=== PATIENT | male | born 1945 | race Caucasian/White ===

== ENCOUNTER → 2019-04-02 | Outpatient (CLI) | payer MEDICARE, OTHER ==
--- NOTE | 2019-04-02 14:03 | Diagnostic Imaging Report ---
INDICATION: Cough. TIME OF EXAM: 1:22 p.m. COMPARISON: No prior studies are available for comparison. FINDINGS: The heart is mildly enlarged. Lungs appear to be free of acute infiltrates. No effusion or pneumothorax is identified. IMPRESSION: No acute cardiopulmonary process is detected. Dictated by: Dictated on workstation # [id number]
== END ==
LOC: RAD FS 13:27
PROVIDERS: ATTEND Nurse Practitioner Family
DX: J40 Bronchitis, not specified as acute or chronic (principal)
CPT/HCPCS: 71046

== ENCOUNTER 2020-08-18 05:49 | Outpatient (RCR) | payer MEDICARE, OTHER ==
[~2020-08-18] VITALS: Ht 165.1 cm; Wt 104.5 kg
[2020-08-18] MEDS ORDERED: EMPA10TA PO (12:37)
[2020-08-18] MEDS ORDERED: ZOLP5TAB7 PO (12:37)
[2020-08-18] MEDS ORDERED: CHOL400T PO (12:37)
[2020-08-18] MEDS ORDERED: FL025NA25 NS (12:37)
[2020-08-18] MEDS ORDERED: FAMO20TA3 PO (12:37)
[2020-08-18] MEDS ORDERED: CHLO4TAB36 PO (12:37)
[2020-08-18] MEDS ORDERED: FEXO-46 PO (12:37)
[2020-08-18] MEDS ORDERED: CETI10TA17 PO (12:37)
[2020-08-18] MEDS ORDERED: TIOT4MIS2 IH (12:37)
[2020-08-18] MEDS ORDERED: IRBE300T17 PO (12:37)
[2020-08-18] MEDS ORDERED: TERA5CAP3 PO (12:37)
[2020-08-18] MEDS ORDERED: LEVO75CA5 PO (12:37)
[2020-08-18] MEDS ORDERED: PRAV80TA2 PO (12:37)
[2020-08-18] MEDS ORDERED: ASPI-999 PO (12:57)
[2020-08-18] MEDS ORDERED: METO50TA15 PO (12:57)
[2020-08-18] MEDS ORDERED: CLOP75TA28 PO (12:57)
[2020-08-18] MEDS ORDERED: METF-399 PO (12:57)
[2020-08-18] MEDS ORDERED: CALC500T64 PO (12:57)
== END 2020-08-18 13:02 | disposition home or self-care (01) ==
LOC: PREOP 05:49
PROVIDERS: ATTEND Urology
DX: Z01.818 Encounter for other preprocedural examination (principal); N47.1 Phimosis; N48.0 Leukoplakia of penis

== ENCOUNTER → 2020-08-21 | Outpatient (CLI) | payer MEDICARE, OTHER ==
[~2020-08-21] MED LIST: ASPI-999 PO; CALC500T64 PO; CETI10TA17 PO; CHLO4TAB36 PO; CHOL400T PO; CLOP75TA28 PO; EMPA10TA PO; FAMO20TA3 PO; FEXO-46 PO; FL025NA25 NS; IRBE300T17 PO; LEVO75CA5 PO; METF-399 PO; METO50TA15 PO; PRAV80TA2 PO; TERA5CAP3 PO; TIOT4MIS2 IH; TRM50T PO; ZOLP5TAB7 PO
== END ==
LOC: LAB FS 10:50
PROVIDERS: ATTEND Urology
DX: Z01.812 Encounter for preprocedural laboratory examination (principal); N47.1 Phimosis; Z20.822 Contact with and (suspected) exposure to COVID-19
CPT/HCPCS: 87635

== ENCOUNTER 2020-08-25 06:32 | Day surgery (SDC) | payer MEDICARE, OTHER ==
[2020-08-25] VITALS (10 sets, daily range): BP systolic 100–140; BP diastolic 65–87
[~2020-08-25] VITALS: Ht 165.1 cm; Wt 104.5 kg
[~2020-08-25 06:32] MED LIST changes: -TRM50T PO
[2020-08-25] MEDS ORDERED: ceFAZolin INJECTION 1,000 MG in WATER (STERILE) FOR INJECTION 10 ML IV ONE (06:45)
[2020-08-25] MEDS ORDERED: LACTATED RINGERS 1,000 ML IV PRN (06:45)
[2020-08-25] MEDS ORDERED: NEOSPORIN + PAIN RELIEF CREAM 15 GM ONE (06:50)
[2020-08-25] MEDS ORDERED: proPOfol 200 MG/20 ML (DIPRIVAN) VIAL IV ONE ×2 (07:05→08:01)
[2020-08-25] MEDS ORDERED: fentaNYL INJECTION 100 MCG/2 ML AMP ONE (07:05)
[2020-08-25] MEDS ORDERED: LIDOCAINE PF 2% 5 ML (XYLOCAINE) VIAL ONE (07:05)
[2020-08-25] MEDS ORDERED: ONDANSETRON 4 MG/2 ML (SDV) Z0FRAN ONE ×2 (07:05→07:54)
[2020-08-25] MEDS ORDERED: MIDAZOLAM 2 MG/2 ML (VERSED) VIAL ONE (07:06)
[2020-08-25] MEDS ORDERED: SEVOFLURANE (ULTANE) 15 ML INHAL SOLN ONE (07:10)
--- NOTE | 2020-08-25 07:14 | Progress Note-Pre Operative ---
Pre-Operative Progress Note H&P Reviewed The H&P was reviewed, patient examined and no changes noted. Date Seen by Provider: Aug 25, 2020 Time Seen by Provider: 07:14 Date H&P Reviewed: Aug 25, 2020 Time H&P Reviewed: 07:14 Pre-Operative Diagnosis: SEVERE PHIMOSIS PRISCILLA LUCAS MD Aug 25, 2020 07:14
--- NOTE | 2020-08-25 07:16 | Progress Note-Post Operative ---
Post-Operative Progess Note Surgeon (s)/Application Programmer Analyst (s) Surgeon PRISCILLA LUCAS MD Application Programmer Analyst: NONE Pre-Operative Diagnosis SEVERE PHIMOSIS Post-Operative Diagnosis SAME Procedure & Operative Findings Date of Procedure 08/25/20 Procedure Performed/Findings CIRCUMCISION Anesthesia Type GENERAL Estimated Blood Loss Estimated blood loss (mL): LESS THAN 50cc Specimens/Packing Specimens Removed NONE TO PATH Packing: NONE PRISCILLA LUCAS MD Aug 25, 2020 07:16
--- NOTE | 2020-08-25 07:19 | Discharge Inst-Urology ---
Discharge Inst-Urology Reconcile Patient Problems Problems Reviewed?: Yes Final Diagnosis SEVERE PHIMOSIS Patient Instructions/Follow Up Plan/Assessment/Instructions Please make appointment to been seen in office in 2 weeks. Hold ASA and Plavix till then. Rest till then Ice to penis in RR and at home for 6 hours and then PRN Showers, no bath Keep bowels soft and moving Wear light pants Neosporin + pain ointment to circ area bid for 5-7 days Increase oral fluids for 48 hours and then as needed. Diet as tolerated. If questions or concerns contact your physician Or seek help at emergency department. PRISCILLA LUCAS MD Aug 25, 2020 07:19
[2020-08-25] MEDS ORDERED: TRM50T PO (07:52)
[2020-08-25] MEDS ORDERED: PHENYLEPHRINE INJ 10 MG/ML (FOR DRIP KITS ONLY) ONE (07:55)
[2020-08-25] MEDS ORDERED: BUPIVACAINE 0.25% 30 ML (SENSORCAINE) VIAL ONE (08:13)
[2020-08-25] MEDS ORDERED: PHENYLEPHRINE 100 MCG/ML 10 ML (ANESTHESIA) SYR ONE (08:13)
[2020-08-25] MEDS ORDERED: MEPERIDINE (DEMEROL) INJ 50 MG/ML IVP ONE (08:30)
[2020-08-25] MEDS ORDERED: ONDANSETRON 4 MG/2 ML (SDV) Z0FRAN IVP PRN (08:30)
[2020-08-25] MEDS ORDERED: morphine INJ 10 MG/ML 1ML (SYR OR VIAL) IVP ONE (08:30)
--- NOTE | 2020-08-25 09:26 | Anesthesia-General Post-Op ---
General Patient Condition Mental Status/LOC: Same as Preop Cardiovascular: Satisfactory Nausea/Vomiting: Absent Respiratory: Satisfactory Pain: Controlled Complications: Absent Post Op Complications Complications None Follow Up Care/Instructions Patient Instructions None needed. Anesthesia/Patient Condition Patient Condition Patient is doing well, no complaints, stable vital signs, no apparent adverse anesthesia problems. No complications reported per nursing. LUIS ENRIQUE WITT CRNA Aug 25, 2020 09:26
--- NOTE | 2020-08-25 10:56 | OPERATIVE REPORT ---
DATE OF SERVICE: 08/25/2020 PREOPERATIVE DIAGNOSIS: Severe phimosis. POSTOPERATIVE DIAGNOSIS: Severe phimosis. OPERATION PERFORMED: Circumcision. SURGEON: Cal Lucas MD. ANESTHESIA: General. COMPLICATIONS: None. DESCRIPTION OF PROCEDURE: Under satisfactory general anesthesia, the patient in supine position, the genitalia were prepped and draped in the usual sterile fashion. Unable to retract the foreskin, I went ahead and performed a dorsal slit. Then, a circular incision in the skin at the level of the cho glandis then into the mucosa just proximal to the cho glandis. The excess foreskin was sharply excised. Bleeders were cauterized or ligated with 3-0 chromic catgut suture. Hemostasis was complete. The skin and the mucosa were approximated with running 4-0 chromic catgut interrupted in four quadrants. Neosporin plus pain ointment was applied as well as a light dressing. The patient tolerated the procedure and anesthesia well and was sent to recovery room in stable condition. ESTIMATED BLOOD LOSS: Less than 50 mL. Job ID: [id number] DocumentID: [id number] Dictated Date: 08/25/2020 08:20:04 Forge Tender Date: 08/25/2020 10:55:32 Dictated By: CAL LUCAS MD
== END 2020-08-25 10:45 | disposition home or self-care (01) ==
LOC: SDC 06:32
PROVIDERS: ATTEND Urology
DX: N47.1 Phimosis (principal); N48.0 Leukoplakia of penis; I25.10 Atherosclerotic heart disease of native coronary artery without angina pectoris; I10 Essential (primary) hypertension; E11.9 Type 2 diabetes mellitus without complications; K21.9 Gastro-esophageal reflux disease without esophagitis; N40.0 Benign prostatic hyperplasia without lower urinary tract symptoms; E66.9 Obesity, unspecified; Z68.38 Body mass index [BMI] 38.0-38.9, adult; Z79.82 Long term (current) use of aspirin; Z79.899 Other long term (current) drug therapy; Z90.89 Acquired absence of other organs; Z95.5 Presence of coronary angioplasty implant and graft; Z98.890 Other specified postprocedural states; Z79.84 Long term (current) use of oral hypoglycemic drugs; Z87.891 Personal history of nicotine dependence
CPT/HCPCS: 82962; 87081

== ENCOUNTER 2021-08-30 08:02 | Outpatient (CLI) | payer MEDICARE, OTHER ==
[~2021-08-30] VITALS: Ht 165.1 cm; Wt 102.1 kg
[~2021-08-30 08:02] MED LIST changes: +TERA5CAP10 PO; -TERA5CAP3 PO; +TRM50T PO
== END 2021-08-30 13:29 ==
LOC: PREOP 08:02
PROVIDERS: ATTEND Surgery
DX: Z01.818 Encounter for other preprocedural examination (principal)

== ENCOUNTER → 2021-09-03 | Outpatient (CLI) | payer MEDICARE, OTHER | LOC: LAB FS 10:17 | PROVIDERS: ATTEND Surgery | DX: Z01.812 Encounter for preprocedural laboratory examination (principal); K21.9 Gastro-esophageal reflux disease without esophagitis; R19.4 Change in bowel habit; Z86.010 Personal history of colon polyps; Z20.822 Contact with and (suspected) exposure to COVID-19 | CPT/HCPCS: 87635 ==

== ENCOUNTER 2021-09-06 07:21 | Day surgery (SDC) | payer MEDICARE, OTHER ==
[~2021-09-06] VITALS: Ht 165 cm; Wt 102.0 kg
[2021-09-06] MEDS ORDERED: LACTATED RINGERS 1,000 ML IV STA (07:41)
[2021-09-06 07:50] VITALS: BP 137/68
[2021-09-06] MEDS ORDERED: LACTATED RINGERS 1,000 ML IV ONE (07:51)
--- NOTE | 2021-09-06 08:31 | Progress Note-Pre Operative ---
Pre-Operative Progress Note H&P Reviewed The H&P was reviewed, patient examined and no changes noted. Time Seen by Provider: 08:26 Date H&P Reviewed: Sep 06, 2021 Time H&P Reviewed: 08: Pre-Operative Diagnosis: Reflux, Hx of polyps, bowel changes PATITO NEELY DO Sep 06, 2021 08:31
[2021-09-06] MEDS ORDERED: PROPOFOL INJECTION 50 ML IV ONE (10:44)
[2021-09-06] MEDS ORDERED: KETAMINE 50 MG/5 ML SYRINGE ONE (10:47)
[2021-09-06 11:30] VITALS: BP 127/59
--- NOTE | 2021-09-06 11:32 | Progress Note-Post Operative ---
Post-Operative Progess Note Surgeon (s)/In Home Nanny (s) Surgeon PATITO NEELY DO In Home Nanny: none Pre-Operative Diagnosis Reflux, Hx of polyps, bowel changes Post-Operative Diagnosis Gastritis Hiatal hernia polyp diverticula int hemorrhoids Procedure & Operative Findings Date of Procedure 09/06/21 Procedure Performed/Findings EGD with biopsy Colon with hot biopsy PROCEDURE NOTE: After informed consent was obtained, the patient was brought to the endoscopy suite, placed in bed in left lateral decubitus position. He was administered IV sedation by the SANFORIZING MACHINE OPERATOR who then monitored vitals the entire time, heart rate, blood pressure and pulse ox and the scope was inserted down the mouth through the esophagus into the stomach. Pushed into the stomach and past the antrum into the duodenum; duodenum looked good. Pulled back and did a biopsy of the antrum, then retroflexed the scope, saw a 1cm hiatal hernia, took a picture of this and then pulled the scope into the GE junction, took another picture of the hiatal hernia and then did a biopsy of the GE junction. Pushed the scope back into the stomach, suctioned all the air out of the stomach. At this point pulled the scope up the esophagus and out the mouth. Switched camera, switched gloves and went down below to start the colonoscopy. Pushed all the way into about 150 cm to get all the way to cecum, took a picture of the appendiceal orifice and noted the ileocecal valve and then slowly withdrew the scope. Insufflating to look circumferentially at the azevedo starting in the cecum, up the ascending colon. Saw a small polyp in the ascending colon and elected to remove it with hot biopsy. To the hepatic flexure, then down the transverse colon to the splenic flexure and into the descending colon. Had seen some large diverticula through here and took a picture of the diverticula. Down into the sigmoid and finally into the rectum, retroflexed in the rectal vault, saw some minimal internal hemorrhoids and took a picture of this. The patient tolerated the procedure and he recovered in the endoscopy suite. Anesthesia Type IV sedation by SANFORIZING MACHINE OPERATOR Estimated Blood Loss Estimated blood loss (mL): scant Specimens/Packing Specimens Removed antral bx GE jxn bx Asc colon polyp PATITO NEELY DO Sep 06, 2021 11:32
[2021-09-06 11:34] VITALS: BP 127/59
--- NOTE | 2021-09-06 11:34 | Endoscopy Discharge Instruct ---
Endo Procedure/Findings Findings 1.: Gastritis 2.: Hiatal Hernia 3.: Polyp 4.: Diverticulosis, Internal Hemorrhoids Discharge Instructions - Activity: You might feel a little sleepy until tomorrow. This is due to the medicine you received to relax you. Until tomorrow, you should: NOT drive a car, operate machinery or power tools. NOT drink any alcoholic beverages. NOT make any important decisions or sign importortant papers. Do not return to work until tomorrow, unless otherwise instructed. Resume previous activities tomorrow. Diet: Start by taking liquids. If you tolerate liquids, advance to solid food. 1.: EGD in 3 years 2.: Colonscopy in 5 years Notify Physician - If you experience excessive bleeding, unusual abdominal pain, fever, or chest pain, contact your doctor immediately. PATITO NEELY DO Sep 06, 2021 11:34
--- NOTE | 2021-09-06 11:41 | Anesthesia-General Post-Op ---
MAC Patient Condition Mental Status/LOC: Same as Preop Cardiovascular: Satisfactory Nausea/Vomiting: Absent Respiratory: Satisfactory Pain: Controlled Complications: Absent Post Op Complications Complications None Follow Up Care/Instructions Patient Instructions None needed. Anesthesiology Discharge Order Discharge Order Patient is doing well, no complaints, stable vital signs, no apparent adverse anesthesia problems. No complications reported per nursing. LUIS ENRIQUE WITT CRNA Sep 06, 2021 11:41
[2021-09-06 11:55] VITALS: BP 124/68
== END 2021-09-06 12:12 | disposition home or self-care (01) ==
LOC: ENDO 07:21
PROVIDERS: ATTEND Surgery
DX: K63.5 Polyp of colon (principal); K29.70 Gastritis, unspecified, without bleeding; K22.9 Disease of esophagus, unspecified; K44.9 Diaphragmatic hernia without obstruction or gangrene; K57.30 Diverticulosis of large intestine without perforation or abscess without bleeding; K64.8 Other hemorrhoids; R19.4 Change in bowel habit; E66.9 Obesity, unspecified; R19.7 Diarrhea, unspecified; K21.00 Gastro-esophageal reflux disease with esophagitis, without bleeding; Z68.37 Body mass index [BMI] 37.0-37.9, adult; Z79.2 Long term (current) use of antibiotics; Z79.82 Long term (current) use of aspirin; Z79.899 Other long term (current) drug therapy; Z87.891 Personal history of nicotine dependence

== ENCOUNTER 2022-06-21 01:24 | Inpatient (IN) | payer MEDICARE, OTHER ==
[~2022-06-21] VITALS: Ht 165.1 cm; Wt 98.3 kg
[~2022-06-21 01:24] MED LIST changes: -FEXO-46 PO; +NF-ALLE180 PO
[2022-06-21] MEDS ORDERED: HEParin 1000 UNIT/ML (10ML VIAL) FOR BOLUS ONE (01:49)
[2022-06-21] MEDS ORDERED: MIDAZOLAM 5 MG/5 ML (VERSED) VIAL ONE (01:49)
[2022-06-21] MEDS ORDERED: LIDOCAINE 1% INJ 30 ML (XYLOCAINE) VIAL ONE (01:49)
[2022-06-21] MEDS ORDERED: VERAPAMIL 5 MG/2 ML (CALAN) VIAL IV ONE (01:49)
[2022-06-21] MEDS ORDERED: fentaNYL INJ 100 MCG/2 ML AMP ONE (01:49)
[2022-06-21] MEDS ORDERED: NITRO DRIP 25000 MCG/D5W 250 ML IV ONE (01:50)
[2022-06-21] MEDS ORDERED: NS IV 1000 ML 0 ML ONE (01:50)
[2022-06-21] MEDS ORDERED: HEParin (CATH LAB) 2,000 ML IV ONE (01:50)
--- NOTE | 2022-06-21 01:52 | ED Chest Pain ---
General Stated Complaint: STEMI Source: patient, old records History of Present Illness Date Seen by Provider: Jun 21, 2022 Time Seen by Provider: 01:34 Initial Comments PT ARRIVES VIA [facility] FROM HOME IN [facility] C/O CHEST PAIN SINCE 2299 TONIGHT PAIN IS IN CENTER OF CHEST, RADIATES TO BACK AND DOWN LEFT ARM + SHORTNESS OF BREATH + DIAPHORESIS + LEG SWELLING + NAUSEA RATES PAIN 10/10 PT HAS HISTORY OF CAD WITH STENTS X 5--COST CONTROL ANALYST IS DR. WINTER WITH [facility] PT ALSO HAS HISTORY OF HTN, DIABETES AND COPD EMS GAVE: -324 MG ASPIRIN -ZOFRAN 4 MG -FENTANYL 100 MCG NO NITROGLYCERINE BY EMS. EKG WAS SENT VIA TEXT TO BI REPORT DEVELOPER'S PHONE, AND SHOWS STEMI--INFERIOR LEADS AND ANTERIOR/LATERALLY 0125--DR. PUENTES, COST CONTROL ANALYST DRUG ROOM CLERK, CONTACTED. HE ADVISES TO CALL IN CARDIOPULMONARY TECHNICIAN. BI REPORT DEVELOPER NOTIFIED AND IS CALL IN CARDIOPULMONARY TECHNICIAN TEAM 0135--DR. PUENTES HERE ON PT'S ARRIVAL, AND ASSUMED CARE OF PT PCP: [facility]. HIGH [employer]CHOOL COMPUTER SCIENCE TEACHER DONALD COST CONTROL ANALYST: DR. WINTER, [facility] Allergies and Home Medications Allergies Coded Allergies: fosinopril (Unverified Allergy, Unknown, 08/30/21) lisinopril (Unverified Allergy, Unknown, 08/30/21) Patient Home Medication List Home Medication List Reviewed: Yes Calcium Carbonate (Calcium Carbonate) 500 Mg Tablet, 500 MG PO DAILY, (Reported) Entered as Reported by: HEBERT QUACH on 08/18/20 1257 Last Action: Reviewed Cetirizine HCl (Cetirizine HCl) 10 Mg Tablet, 10 MG PO BID, (Reported) Entered as Reported by: HEBERT QUACH on 08/18/20 1237 Last Action: Reviewed Chlorpheniramine Maleate (Chlorpheniramine Maleate) 4 Mg Tablet, 4 MG PO DAILY, (Reported) Entered as Reported by: HEBERT QUACH on 08/18/20 1237 Cholecalciferol (Vitamin D3) (Vitamin D3) 10 Mcg Tablet, 10 MCG PO DAILY, (Reported) Entered as Reported by: HEBERT QUACH on 08/18/20 1237 Empagliflozin (Jardiance) 10 Mg Tablet, 10 MG PO DAILY, (Reported) Entered as Reported by: HEBERT QUACH on 08/18/201236 Last Action: Reviewed Famotidine (Acid Cell Cleaner (FAMOTIDINE)) 20 Mg Tablet, 20 MG PO BID, (Reported) Entered as Reported by: HEBERT QUACH on 08/18/201236 Last Action: Reviewed Fexofenadine HCl (Fexofenadine HCl) 180 Mg Tablet, 180 MG PO DAILY, (Reported) Entered as Reported by: HEBERT QUACH on 08/18/201236 Last Action: Reviewed Flunisolide (Flunisolide) 25 Ml Inha, 1 PUFF NS DAILY, (Reported) Entered as Reported by: HEBERT QUACH on 08/18/201236 Irbesartan (Irbesartan) 300 Mg Tablet, 300 MG PO DAILY, (Reported) Entered as Reported by: HEBERT QUACH on 08/18/201236 Last Action: Reviewed Levothyroxine Sodium (Levothyroxine) 75 Mcg Capsule, 75 MCG PO DAILY, (Reported) Entered as Reported by: HEBERT QUACH on 08/18/201236 Last Action: Reviewed Metformin HCl (Metformin HCl) 1,000 Mg Tablet, 1,000 MG PO BID, (Reported) Entered as Reported by: HEBERT QUACH on 08/18/20 1257 Last Action: Reviewed Metoprolol Tartrate (Metoprolol Tartrate) 50 Mg Tablet, 50 MG PO BID, (Reported) Entered as Reported by: HEBERT QUACH on 08/18/20 1257 Last Action: Reviewed Pravastatin Sodium (Pravastatin Sodium) 80 Mg Tablet, 80 MG PO HS, (Reported) Entered as Reported by: HEBERT QUACH on 08/18/201236 Last Action: Reviewed Terazosin HCl (Terazosin HCl) 5 Mg Capsule, 5 MG PO DAILY, (Reported) Entered as Reported by: HEBERT QUACH on 08/18/201236 Last Action: Reviewed Tiotropium [place] (Spiriva Respimat 2.5MCG/ACTUATION) 4 Gm Mist.inhal, 2 PUFF IH DAILY, (Reported) Entered as Reported by: HEBERT QUACH on 2/9/21 1237 Last Action: Reviewed Tramadol HCl (Tramadol HCl) 50 Mg Tablet, 1-2 TAB PO Q4H PRN for PAIN-MODERATE (5-7) Prescribed by: ANGELITA CONTI on 08/25/20 2499 Last Action: Reviewed Zolpidem Tartrate (Zolpidem Tartrate) 5 Mg Tablet, 5 MG PO HS, (Reported) Entered as Reported by: HEBERT QUACH on 08/18/20 1237 Last Action: Reviewed Review of Systems Review of Systems Constitutional: see HPI, diaphoresis EENTM: No Symptoms Reported Respiratory: See HPI, Shortness of Air Cardiovascular: See HPI, Chest Pain, Edema; Denies Lightheadedness, Denies Palpitations Gastrointestinal: See HPI; Denies Abdominal Pain; Nausea; Denies Vomiting Genitourinary: No Symptoms Reported Musculoskeletal: no symptoms reported Skin: no symptoms reported Psychiatric/Neurological: No Symptoms Reported Endocrine: No Symptoms Reported Hematologic/Lymphatic: No Symptoms Reported Past Mrgxayy-Clrbye-Mptlol Hx Patient Social History Tobacco Use?: Yes Tobacco type used: Cigarettes Smoking Status: Never a Smoker Substance use?: No Alcohol Use?: No Immunizations Up To Date PED Vaccines UTD: No First/Initial COVID19 Vaccinat: YES Second COVID19 Vaccination Jeffrey: YES Third COVID19 Vaccination Date: YES Seasonal Allergies Seasonal Allergies: Yes Past Medical History Surgeries: Yes (stents placed in 2004,2009, and 5 placed October 2019, lung sx 1960, ganglion) Adenoidectomy, Coronary Stent, Lobectomy, Orthopedic, Tonsillectomy Respiratory: Yes (hx of lung sx in 1960's"lung repair") COPD Currently Using CPAP: No Currently Using BIPAP: No Cardiac: Yes (CAD WITH STENTS X 5 OR MORE) Coronary Artery Disease, High Cholesterol, Hypertension Neurological: No Genitourinary: Yes ("WEAK BLADDER"; CIRCUMCISION 08/25/2020) Benign Prostatic Hyperpl, Prostate Problems Gastrointestinal: Yes (GASTRITIS) Gastroesophageal Reflux, Diverticulosis, Hemorrhoids, Polyps, Hiatal Hernia Musculoskeletal: Yes Arthritis Endocrine: Yes Hypothyroidsim, Diabetes, Non-Insulin dep HEENT: Yes (glasses) Cancer: No Psychosocial: No Integumentary: Yes Psoriasis Blood Disorders: No Family Medical History CIRCUMCISION 08/25/[address] LUCAS EGD + COLONOSCOPY 09/06/[address] NEELY Pre-Operative Diagnosis Reflux, Hx of polyps, bowel changes Post-Operative Diagnosis Gastritis Hiatal hernia polyp diverticula int hemorrhoids Physical Exam Vital Signs Capillary Refill : Height, Weight, BMI Height: '" Weight: lbs. oz. kg; 37.46 BMI Method: General Appearance: No Apparent Distress, WD/WN, Obese Neck: Normal Inspection Respiratory: Chest Non Tender, Normal Breath Sounds, No Accessory Muscle Use, No Respiratory Distress Cardiovascular: Regular Rate, Rhythm, No Murmur Gastrointestinal: Non Tender, Soft Extremity: Normal Capillary Refill, No Calf Tenderness, Pedal Edema (TRACE BILATERALLY) Neurologic/Psychiatric: Alert, Oriented x3, No Motor/Sensory Deficits, Normal Mood/Affect, licensed physical therapist II-XII Norm as Tested Skin: Normal Color, Warm/Dry Progress/Results/Core Measures Results/Orders Lab Results Laboratory Tests Test 06/21/22 01:45 Range/Units White Blood Count 10.6 4.3-11.0 10^3/uL Red Blood Count 4.84 4.30-5.52 10^6/uL Hemoglobin 13.1 L 13.3-17.7 g/dL Hematocrit 42 40-54 % Mean Corpuscular Volume 87 80-99 fL Mean Corpuscular Hemoglobin 27 25-34 pg Mean Corpuscular Hemoglobin Concent 31 L 32-36 g/dL Red Cell Distribution Width 17.0 H 10.0-14.5 % Platelet Count 304 130-400 10^3/uL Mean Platelet Volume 9.5 9.0-12.2 fL Immature Granulocyte % (Auto) 0 % Neutrophils (%) (Auto) 72 42-75 % Lymphocytes (%) (Auto) 18 12-44 % Monocytes (%) (Auto) 8 0-12 % Eosinophils (%) (Auto) 2 0-10 % Basophils (%) (Auto) 0 0-10 % Neutrophils # (Auto) 7.6 1.8-7.8 10^3/uL Lymphocytes # (Auto) 1.9 1.0-4.0 10^3/uL Monocytes # (Auto) 0.8 0.0-1.0 10^3/uL Eosinophils # (Auto) 0.2 0.0-0.3 10^3/uL Basophils # (Auto) 0.0 0.0-0.1 10^3/uL Immature Granulocyte # (Auto) 0.0 0.0-0.1 10^3/uL Prothrombin Time 13.2 12.2-14.7 SEC INR Comment 1.0 0.8-1.4 Activated Partial Thromboplast Time 25 24-35 SEC D-Dimer 0.48 0.00-0.49 UG/ML Sodium Level 141 135-145 MMOL/L Potassium Level 3.5 L 3.6-5.0 MMOL/L Chloride Level 103 98-107 MMOL/L Carbon Dioxide Level 21 21-32 MMOL/L Anion Gap 17 H 5-14 MMOL/L Blood Urea Nitrogen 23 H 7-18 MG/DL Creatinine 1.05 0.60-1.30 MG/DL Estimat Glomerular Filtration Rate 72 BUN/Creatinine Ratio 22 Glucose Level 214 H 70-105 MG/DL Calcium Level 8.7 8.5-10.1 MG/DL Corrected Calcium 8.7 8.5-10.1 MG/DL Magnesium Level 1.7 1.6-2.4 MG/DL Total Bilirubin 0.3 0.1-1.0 MG/DL Aspartate Amino Transf (AST/SGOT) 17 5-34 U/L Alanine Aminotransferase (ALT/SGPT) 29 0-55 U/L Alkaline Phosphatase 68 40-136 U/L Total Creatine Kinase 106 30-200 U/L Creatine Kinase MB 1.4 <6.6 NG/ML Myoglobin 64.3 10.0-92.0 NG/ML Troponin I < 0.028 <0.028 NG/ML B-Type Natriuretic Peptide 42.8 <100.0 PG/ML Total Protein 6.8 6.4-8.2 GM/DL Albumin 4.0 3.2-4.5 GM/DL Triglycerides Level 139 <150 MG/DL Cholesterol Level 130 < 200 MG/DL LDL Cholesterol Direct 77 1-129 MG/DL VLDL Cholesterol 28 5-40 MG/DL HDL Cholesterol 34 L 40-60 MG/DL Amylase Level 44 25-125 U/L Lipase 16 8-78 U/L My Orders Orders - TIANNA ZUÑIGA DO Ekg Tracing (06/21/22 01:35) Ed Iv/Invasive Line Start (06/21/22 01:37) O2 (06/21/22 01:37) Monitor-Rhythm Ecg Trace Only (06/21/22 01:37) Amylase (06/21/22 01:37) Lipase (06/21/22 01:37) Magnesium (06/21/22 01:37) Cbc With Automated Diff (06/21/22 01:37) Chest 1 View, Ap/Pa Only (06/21/22 01:37) Ekg Tracing (06/21/22 01:37) Comprehensive Metabolic Panel (06/21/22 01:37) Myoglobin Serum (06/21/22 01:37) Protime With Inr (06/21/22 01:37) Partial Thromboplastin Time (06/21/22 01:37) O2 (06/21/22 01:37) Ed Iv/Invasive Line Start (06/21/22 01:37) Creatine Kinase (06/21/22 01:37) Creatine Kinase Mb (06/21/22 01:37) Bnp Centre (06/21/22 01:37) Fibrin Degradation Products (06/21/22 01:37) Troponin I Agustín (06/21/22 01:37) Heparin (Bolus Per Protocol) (Heparin (B (06/21/22 02:00) Morphine Injection (Morphine Injection (06/21/22 02:00) Medications Given in ED Current Medications Medications Dose Ordered Sig/Suzette Route Start Time Stop Time Status Last Admin Dose Admin Heparin Sodium (Porcine) HEPARIN FULL PROTOC... ONCE ONCE IV 06/21/22 02:00 06/21/22 02:01 DC 06/21/22 01:47 5,000 UNIT Morphine Sulfate 4 mg ONCE ONCE IVP 06/21/22 02:00 06/21/22 02:01 DC 06/21/22 02:09 4 MG Progress Progress Note : Progress Note CARDIOPULMONARY TECHNICIAN AND DR. PUENTES WERE CONTACTED PRIOR TO PT'S ARRIVAL GIVEN IN ER: -MORPHINE FOR PAIN -HEPARIN BOLUS 0210--PT TO CARDIOPULMONARY TECHNICIAN PT HAS NOT HAD ANY ER OR INPATIENT VISITS HERE, HAS HAD OUTPATIENT PROCEDURES ONLY. THESE WERE REVIEWED, INCLUDING H&P'S, PROCEDURE NOTES AND DISCHARGE SUMMARIES/INSTRUCTIONS Initial ECG Impression Date: Jun 21, 2022 Initial ECG Impression Time: 01:41 Initial ECG Rate: 88 Initial ECG Rhythm: Normal Sinus (OCCASIONAL PAC'S) Initial ECG Impression: Acute OH (INFERIOR AND ANTERIOR/LATERAL STEMI. ) Initial ECG Comparisson: No Previous ECG Available Diagnostic Imaging Comments CXR--INCREASED PERIHILAR VASCULARITY/CHF, PENDING RADIOLOGIST REVIEW Reviewed: Reviewed by Me Departure Impression Primary Impression: STEMI (ST elevation myocardial infarction) Additional Impressions: HTN (hypertension) NIDDM HX OF CAD WITH STENTS Disposition: ADMITTED INPATIENT (TO CARDIOPULMONARY TECHNICIAN) Condition: Stable Admissions Decision to Admit Reason: Admit from ER (General) (TO CARDIOPULMONARY TECHNICIAN) Decision to Admit/Date: Jun 21, 2022 Time/Decision to Admit Time: 01:35 Departure-Patient Inst. Referrals: REMI BENNETT APRN (PCP) Primary Care Physician [facility] (Family) Primary Care Physician TIANNA ZUÑIGA DO Jun 21, 2022 01:52
[2022-06-21 01:55] LABS: BASOPHILS % (AUTO) 0 % (0-10); EOSINOPHILS # (AUTO) 0.2 10^3/uL (0.0-0.3); EOSINOPHILS % (AUTO) 2 % (0-10); HEMATOCRIT 42 % (40-54); HEMOGLOBIN 13.1 g/dL (13.3-17.7); LYMPHOCYTES # (AUTO) 1.9 10^3/uL (1.0-4.0); LYMPHOCYTES % (AUTO) 18 % (12-44); MEAN CORPUSCULAR HEMOGLOBIN 27 pg (25-34); MEAN CORPUSCULAR HGB CONC 31 g/dL (32-36); MEAN CORPUSCULAR VOLUME 87 fL (80-99); MEAN PLATELET VOLUME 9.5 fL (9.0-12.2); MONOCYTES # (AUTO) 0.8 10^3/uL (0.0-1.0); MONOCYTES % (AUTO) 8 % (0-12); NEUTROPHILS # (AUTO) 7.6 10^3/uL (1.8-7.8); NEUTROPHILS % (AUTO) 72 % (42-75); PLATELET COUNT 304 10^3/uL (130-400); WHITE BLOOD COUNT 10.6 10^3/uL (4.3-11.0)
[2022-06-21] MEDS ORDERED: morphine INJ 10 MG/ML 1ML (SYR OR VIAL) IVP ONE (02:00)
[2022-06-21] MEDS ORDERED: HEParin 1000 UNIT/ML (10ML VIAL) FOR BOLUS IV ONE (02:00)
--- NOTE | 2022-06-21 02:02 | Consultation-Cardiology ---
HPI-Cardiology Cardiology Consultation: Date of Consultation 06/21/22 Date of Admission 06/21/22 Attending Physician Lorie Olivarez Aprn Admitting Physician Admitting Physician: Attending Physician: Consulting Physician JUANITA PUENTES JR, MD HPI: Time Seen by a Provider: 01:56 Chief Complaint: THIS IS A HISTORY AND PHYSICAL FOR ADMISSION CHIEF COMPLAINT: Chest pain. I had the pleasure of seeing Parker in the ER at [facility] in [place], [place] this morning. He has a history of coronary artery disease with 5 previous coronary stents. He normally follows with a silk screen painter at [facility] in [place], [place]. He does not typically get angina. However, last evening at about 11:00 he developed substernal chest discomfort. He did not have any nitroglycerin at home. After the discomfort did not resolve, he eventu rochelley called 911. Upon arrival of EMS, an electrocardiogram was performed which reportedly showed an inferior STEMI. The patient was transported to our hospital for further treatment. In route, we were notified about the STEMI but they were not able to transmit the electrocardiogram until they were about 5 minutes out. When I saw him, he was still having significant substernal chest discomfort. He was diaphoretic. He also felt some shortness of breath. He denies paroxysmal nocturnal dyspnea, orthopnea, palpitations, lightheadedness, or syncope. From time to time he will get bilateral lower extremity edema. This usually happens by the end of the day and resolves by the following morning. He does not recall ever being told he has heart failure. Dry Review of Systems-Cardiology Review of Systems Other comments Review of 10 organ systems is as per the history of present illness, otherwise negative. AHV-Cjgyve-Equkys Hx Patient Social History Smoking Status: Former Smoker 2nd Hand Smoke Exposure: No Immunizations Up To Date Date of Influenza Vaccine: Apr 09, 2020 Past Medical History PMH As described under Assessment. Allergies and Home Medications Allergies Coded Allergies: fosinopril (Unverified Allergy, Unknown, 08/30/21) lisinopril (Unverified Allergy, Unknown, 08/30/21) Patient Home Medication List Home Medication List Reviewed: Yes Calcium Carbonate (Calcium Carbonate) 500 Mg Tablet, 500 MG PO DAILY, (Reported) Entered as Reported by: HEBERT QUACH on 08/18/20 1257 Cetirizine HCl (Cetirizine HCl) 10 Mg Tablet, 10 MG PO BID, (Reported) Entered as Reported by: HEBERT QUACH on 08/18/20 1237 Chlorpheniramine Maleate (Chlorpheniramine Maleate) 4 Mg Tablet, 4 MG PO DAILY, (Reported) Entered as Reported by: HEBERT QUACH on 08/18/20 1237 Cholecalciferol (Vitamin D3) (Vitamin D3) 10 Mcg Tablet, 10 MCG PO DAILY, (Reported) Entered as Reported by: HEBERT QUACH on 08/18/20 1237 Empagliflozin (Jardiance) 10 Mg Tablet, 10 MG PO DAILY, (Reported) Entered as Reported by: HEBERT QUACH on 08/18/20 123 Famotidine (Acid Biomedical Scientist (FAMOTIDINE)) 20 Mg Tablet, 20 MG PO BID, (Reported) Entered as Reported by: HEBERT QUACH on 08/18/20 123 Fexofenadine HCl (Fexofenadine HCl) 180 Mg Tablet, 180 MG PO DAILY, (Reported) Entered as Reported by: HEBERT QUACH on 08/18/20 123 Flunisolide (Flunisolide) 25 Ml Inha, 1 PUFF NS DAILY, (Reported) Entered as Reported by: HEBERT QUACH on 08/18/20 123 Irbesartan (Irbesartan) 300 Mg Tablet, 300 MG PO DAILY, (Reported) Entered as Reported by: HEBERT QUACH on 08/18/20 123 Levothyroxine Sodium (Levothyroxine) 75 Mcg Capsule, 75 MCG PO DAILY, (Reported) Entered as Reported by: HEBERT QUACH on 08/18/20 1237 Metformin HCl (Metformin HCl) 1,000 Mg Tablet, 1,000 MG PO BID, (Reported) Entered as Reported by: HEBERT QUACH on 08/18/20 1257 Metoprolol Tartrate (Metoprolol Tartrate) 50 Mg Tablet, 50 MG PO BID, (Reported) Entered as Reported by: HEBERT QUACH on 08/18/20 1257 Pravastatin Sodium (Pravastatin Sodium) 80 Mg Tablet, 80 MG PO HS, (Reported) Entered as Reported by: HEBERT QUACH on 08/18/20 1237 Terazosin HCl (Terazosin HCl) 5 Mg Capsule, 5 MG PO DAILY, (Reported) Entered as Reported by: HEBERT QUACH on 08/18/20 1237 Tiotropium [place] (Spiriva Respimat 2.5MCG/ACTUATION) 4 Gm Mist.inhal, 2 PUFF IH DAILY, (Reported) Entered as Reported by: HEBERT QUACH on 08/18/20 1237 Tramadol HCl (Tramadol HCl) 50 Mg Tablet, 1-2 TAB PO Q4H PRN for PAIN-MODERATE (5-7) Prescribed by: ANGELITA CONTI on 08/25/20 0752 Zolpidem Tartrate (Zolpidem Tartrate) 5 Mg Tablet, 5 MG PO HS, (Reported) Entered as Reported by: HEBERT QUACH on 08/18/20 1237 Exam Physical Exam General: Alert. Mild distress due to chest pain. Well nourished and appears stated age. He is obese. Eye: Extraocular movements are intact. Conjunctivae are clear. There are no xanthelasma. HENT: Normocephalic. Atraumatic. Carotid pulsations 2/2 without bruits. Neck: Jugular venous pressure does not appear elevated. No thyromegaly appreciated. Respiratory: Lungs are clear to auscultation. Respirations are non-labored. Breath sounds are equal. Symmetrical chest wall expansion. Cardiovascular: Normal rate. Regular rhythm. No murmur. Distant S1/S2. No gallop. Point of maximal impulse is not appear displaced. Good pulses equal in all extremities. 1+ bilateral pretibial edema. Gastrointestinal: Soft. Normal bowel sounds. Skin: Skin turgor is normal. There is no pallor. Musculoskeletal: No kyphosis or scoliosis appreciated. Neurologic: Alert and oriented to person, place, time. Cranial nerves 3-12 appear grossly intact. The patient has good motor tone strength in the upper and lower extremities bilaterally. Psychiatric: Cooperative. Appropriate mood & affect. Labs Laboratory Tests Test 06/21/22 01:45 Range/Units ECG Impression ECG Comment Sinus rhythm with inferior ST elevation with ST elevation in the lateral precordial leads, and ST depression in the early precordial leads and lateral limb leads. Diagnosis/Problems Diagnosis/Problems (1) ST elevation myocardial infarction (STEMI) of inferolateral wall, initial episode of care Assessment & Plan: He appears to be suffering an inferolateral ST elevation myocardial infarction. He received aspirin in the ambulance and intravenous heparin in the emergency room. We will proceed with emergency cardiac catheterization. (2) Coronary artery disease with unstable angina pectoris Assessment & Plan: As above. (3) Primary hypertension Assessment & Plan: Resume outpatient antihypertensive medications. (4) Mixed hyperlipidemia Assessment & Plan: Continue statin medication. (5) Type 2 diabetes mellitus with complication Assessment & Plan: Hold metformin due to the cardiac catheterization. Jardiance can be continued. I will order sliding scale insulin. JUANITA PUENTES JR, MD Jun 21, 2022 02:02
--- NOTE | 2022-06-21 02:06 | Pre-Op Note & Conscious Sedat ---
Pre-Operative Progress Note Date H&P Reviewed: Jun 21, 2022 Time H&P Reviewed: 02:06 History & Physical: H&P Reviewed, Patient Examed, No changes noted Pre-Op Diagnosis: Inferolateral STEMI Conscious Sedation Pre-Proced ASA Score 3 For ASA 3 and 4: Consider anesthesia and medical clearance. Also, for patients with a history of failed moderate sedation consider anesthesia. Airway Lungs Heart ASA score ASA 1: a normal healthy patient ASA 2: a patient with a mild systemic disease (mid diabetes, controlled hypertension, obesity ASA 3: a patient with a severe systemic disease that limits activity (angina, COPD, prior Myocardial infarction) ASA 4: a patient with an incapacitating disease that is a constant threat to life (CHF, renal failure) ASA 5: a moribund patient not expected to survive 24 hrs. (ruptured aneurysm) ASA 6: a declared brain- patient whose organs are being harvested. For emergent operations, add the letter E after the classification Mallampati Classification Grade 3 Sedation Plan Analgesia, Amnesia, Plan communicated to team members, Discussed options with patient/fam, Discussed risks with patient/fam The patient is an appropriate candidate to undergo the planned procedure, sedation, and anesthesia. The patient immediately re-assessed prior to indication. Given his current clinical status, he is considered severely frail. He has no reported history of heart failure. JUANITA PUENTES JR, MD Jun 21, 2022 02:06
[2022-06-21 02:08] LABS: PROTHROMBIN TIME PATIENT 13.2 SEC (12.2-14.7)
[2022-06-21 02:16] LABS: AMYLASE 44 U/L (25-125); LIPASE 16 U/L (8-78); MAGNESIUM 1.7 MG/DL (1.6-2.4)
[2022-06-21 02:18] LABS: BILIRUBIN,TOTAL 0.3 MG/DL (0.1-1.0); CALCIUM 8.7 MG/DL (8.5-10.1); CREATININE SERUM 1.05 MG/DL (0.60-1.30); POTASSIUM 3.5 MMOL/L (3.6-5.0); TOTAL PROTEIN 6.8 GM/DL (6.4-8.2)
[2022-06-21 02:25] LABS: CREATINE KINASE MB 1.4 NG/ML (<6.6)
[2022-06-21] MEDS ORDERED: TICAGRELOR 90 MG TABLET (BRILINTA) PO ONE (03:01)
[2022-06-21] MEDS ORDERED: ANTACID SUSP 30 ML UDC (MYLANTA) PO PRN (03:15)
[2022-06-21] MEDS ORDERED: DOCUSATE SODIUM 100 MG (COLACE) CAP PO PRN (03:15)
--- NOTE | 2022-06-21 03:20 | Cardiac Cath Report ---
CARDIAC CATHETERIZATION DATE OF PROCEDURE: 06/21/2022 INDICATION: Inferolateral STEMI. HISTORY: The patient is a 77 year old male with a known history of coronary artery disease with previous stents in the left anterior descending and right coronary arteries. He was well until about 11:00 this evening when he developed severe substernal chest discomfort associated with shortness of breath and diaphoresis. He ultimately called 911 and was brought to the emergency room for further evaluation. He had an electrocardiogram in the field that showed inferolateral ST elevation and code STEMI was called from the field. He is now referred for further evaluation with an emergency cardiac catheterization. Given his current clinical status, he is considered severely frail. He does not report any history of heart failure. PROCEDURES PERFORMED: 1. Left heart catheterization with hemodynamic measurements. 2. Diagnostic [place] coronary angiography. 3. Drug-eluting stent placement to distal right coronary artery for acute myocardial infarction. PROCEDURE DESCRIPTION: After informed consent and in the fasting state, left heart catheterization was performed through the right radial artery utilizing a 6 Salvadorean system by percutaneous approach. Standard 5 Salvadorean Brian catheters and a 6 Salvadorean JL 3.5 catheter were utilized for the diagnostic portion of the procedure. A 6 Salvadorean JR4 guide catheter was utilized for the percutaneous coronary intervention. All catheters were exchanged over a guidewire. Following the procedure, a vascular band was applied to the radial artery access site and the sheath was removed with good hemostasis. RESULTS: HEMODYNAMICS: The aortic pressure was 121/74 mmHg. The left ventricular pressure was 129/0 mmHg with a left ventricular end-diastolic pressure of 28 mmHg. There was no significant pressure gradient upon pullback across aortic va lve. CORONARY ANGIOGRAPHY: The coronary arteries were mildly calcified and previous stents could also be seen. Left main coronary artery: There is no left main coronary artery as the left anterior descending and left circumflex coronary arteries arise from separate ostia. Left anterior descending coronary artery: There appeared to be 3 stents in the proximal, mid and distal segments which are widely patent. However, there is an eccentric 70% stenosis in the proximal segment just proximal to the proximal stent with LEELA-3 flow. 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 Right coronary artery: Dominant and totally occluded in the distal segment just proximal to a previously placed stent with evidence of thrombus and LEELA 0 flow. This was the ischemia related vessel for the acute myocardial infarction. Once the vessel was opened, it was apparent that there was another stent in the right posterolateral branch that was widely patent. PERCUTANEOUS CORONARY INTERVENTION: Percutaneous coronary intervention was carried out on the distal right coronary artery through a 6 Salvadorean FL 4 guide catheter. The lesion was successfully crossed with a Whisper medium support guidewire. I subsequently performed coronary angioplasty with a 2.5 x 12 mm Trek balloon at a pressure of 10 ashley for 2 inflations. Flow was restored. I subsequently deployed a 3 x 15 mm drug-eluting Xience Skypoint stent in the distal segment overlapping the proximal segment of the previously placed stent at a pressure of 18 ashley. I then postdilated the overlap segment with the stent balloon at a pressure of 18 ashley. Following stent placement, there was 0% residual stenosis with LEELA-3 flow. IMPRESSION: 1. Normal central aortic pressure with markedly elevated left ventricular end- diastolic pressure. 2. Patent stents in the proximal, mid and distal left anterior descending coronary artery however, there is a 70% stenosis just proximal to the proximal stent with LEELA-3 flow. 3. Total thrombotic occlusion of the distal right coronary artery just proximal to a previously placed stent. This was the ischemia related vessel for the acute myocardial infarction. 4. Status post drug-eluting stent placement to the distal right coronary artery with a 3 x 15 mm Xience Skypoint stent overlapping the previously placed stent with 0% residual stenosis and LEELA-3 flow. 5. Patent stent in the right posterolateral branch. 6. I will obtain an echocardiogram later this morning to assess his left ventricular function. Certain portions of this document may have been dictated utilizing voice recognition technology. Inherent to this technology, typographical and grammatical errors may exist. As much as I am diligent to identify and correct these mistakes, some errors may remain in the document. JUANITA PUENTES JR, MD Jun 21, 2022 03:19
--- NOTE | 2022-06-21 04:00 | Tele-ICU Consult ---
History of Present Illness History of Present Illness Date Seen by Provider: Jun 21, 2022 Time Seen by Provider: 03:57 Date of Admission Per cardiology note: Mr Orr has a history of coronary artery disease with 5 previous coronary stents. He normally follows with a assistant health educator at [facility] [place] in [place], [place]. He does not typically get angina. However, last evening at about 11:00 he developed substernal chest discomfort. He did not have any nitroglycerin at home. After the discomfort did not resolve, he eventually called 911. Upon arrival of EMS, an electrocardiogram was performed which reportedly showed an inferior STEMI. The patient was transported to our hospital for further treatment. In route, we were notified about the STEMI but they were not able to transmit the electrocardiogram until they were about 5 minutes out. When I saw him, he was still having significant substernal chest d iscomfort. He was diaphoretic. He also felt some shortness of breath. He denies paroxysmal nocturnal dyspnea, orthopnea, palpitations, lightheadedness, or syncope. From time to time he will get bilateral lower extremity edema. This usually happens by the end of the day and resolves by the following morning. He does not recall ever being told he has heart failure. Cardiac cath: stent of RCA Pt presented to ICU ; appears comfortable no CP/ SOB Allergies and Home Medications Allergies Coded Allergies: fosinopril (Unverified Allergy, Unknown, 08/30/21) lisinopril (Unverified Allergy, Unknown, 08/30/21) Home Medications Calcium Carbonate 500 Mg Tablet, 500 MG PO DAILY, (Reported) Cetirizine HCl 10 Mg Tablet, 10 MG PO BID, (Reported) Chlorpheniramine Maleate 4 Mg Tablet, 4 MG PO DAILY, (Reported) Cholecalciferol (Vitamin D3) 10 Mcg Tablet, 10 MCG PO DAILY, (Reported) Empagliflozin 10 Mg Tablet, 10 MG PO DAILY, (Reported) Famotidine 20 Mg Tablet, 20 MG PO BID, (Reported) Fexofenadine HCl 180 Mg Tablet, 180 MG PO DAILY, (Reported) Flunisolide 25 Ml Inha, 1 PUFF NS DAILY, (Reported) Irbesartan 300 Mg Tablet, 300 MG PO DAILY, (Reported) Levothyroxine Sodium 75 Mcg Capsule, 75 MCG PO DAILY, (Reported) Metformin HCl 1,000 Mg Tablet, 1,000 MG PO BID, (Reported) Metoprolol Tartrate 50 Mg Tablet, 50 MG PO BID, (Reported) Pravastatin Sodium 80 Mg Tablet, 80 MG PO HS, (Reported) Terazosin HCl 5 Mg Capsule, 5 MG PO DAILY, (Reported) Tiotropium [place] 4 Gm Mist.inhal, 2 PUFF IH DAILY, (Reported) Tramadol HCl 50 Mg Tablet, 1-2 TAB PO Q4H PRN for PAIN-MODERATE (5-7) Prescribed by: ANGELITA CONTI on 08/25/20 0752 Zolpidem Tartrate 5 Mg Tablet, 5 MG PO HS, (Reported) Past Medical/Social/Family Hx Patient Social History Tobacco Use?: Yes Tobacco type used: Cigarettes Smoking Status: Former Smoker Use of E-Cig and/or Vaping dev: No Substance use?: No Alcohol Use?: No Pt stated abuse/neglect: No Immunizations Up To Date Influenza Vaccine Up-to-Date: No; Not Current First/Initial COVID19 Vaccinat: YES Second COVID19 Vaccination Jeffrey: YES Tetanus Booster (TDap): Unknown Current Status Advance Directives: No Primary Language: New Zealander Preferred Spoken Language: [place] Zealander Implanted or Applied Medical D: Stents Past Medical History CAD, HTN Family Medical History Family Hx: CIRCUMCISION 08/25/[address] LUCAS EGD + COLONOSCOPY 09/06/[address] NEELY Pre-Operative Diagnosis Reflux, Hx of polyps, bowel changes Post-Operative Diagnosis Gastritis Hiatal hernia polyp diverticula int hemorrhoids Review of Systems Constitutional: see HPI Focused Exam Height, Weight, BMI Height: '" Weight: lbs. oz. kg; 37.46 BMI Method: Exam Exam Patient acknowledged, consented, and participated in this virtual visit which wa s conducted using real time audio/video Vital Signs Date Time Temp Pulse Resp B/P (MAP) Pulse Ox O2 Delivery O2 Flow Rate FiO2 06/21/22 02:54 85 20 140/90 97 Room Air 06/21/22 01:35 36.7 85 20 135/86 (102) 97 Room Air I & O 06/21/22 07:00 Intake Total 500 ml Balance 500 ml Height & Weight Height: '" Weight: lbs. oz. kg; 37.46 BMI Method: General Appearance: No Apparent Distress, WD/WN, Obese Neck: Normal Inspection Respiratory: Chest Non Tender, Normal Breath Sounds, No Accessory Muscle Use, No Respiratory Distress Cardiovascular: Regular Rate, Rhythm, No Murmur Capillary Refill: Less Than 3 Seconds Extremity: Normal Capillary Refill, No Calf Tenderness, Pedal Edema (TRACE BILATERALLY) Neurologic/Psychiatric: Alert, Oriented x3, No Motor/Sensory Deficits, Normal Mood/Affect, wax pattern coater II-XII Norm as Tested Skin: Normal Color, Warm/Dry Results Lab Laboratory Tests 06/21/22 01:45 Assessment/Plan Assessment/Plan CAD sp RCA stent -management per cardiology -pt was visualized/ diagnostics labs notes reviewed cct 20 min dw bed side and teleicu rns Critical Care: Critically Ill Patient ASHLEY BLANKENSHIP MD Jun 21, 2022 04:00
[2022-06-21] MEDS ORDERED: ONDANSETRON 4 MG/2 ML (SDV) Z0FRAN ONE (04:01)
[2022-06-21] MEDS ORDERED: NITROGLYCERIN 2% OINT 1 GM UNIT DOSE PACKET ONE (04:01)
[2022-06-21] MEDS ORDERED: ONDANSETRON 4 MG/2 ML (SDV) Z0FRAN IVP PRN (04:15)
[2022-06-21] MEDS: NITROGLYCERIN 2% OINT 1 GM UNIT DOSE PACKET TOP SCH ×2 (04:26→11:48)
[2022-06-21] MEDS: NS IV 1000 ML 1,000 ML IV SCH ×2 (04:27→13:31)
[2022-06-21] MEDS ORDERED: LEVOTHYROXINE 88 MCG (LEVOTHORID) TAB PO SCH (06:30)
[2022-06-21] MEDS ORDERED: FLU QUAD HIGH DOSE 240 MCG/0.7 ML 2022-23 (FLUZONE) IM ONE (07:00)
--- NOTE | 2022-06-21 08:30 | Diagnostic Imaging Report ---
CHEST 1 VIEW, AP/PA ONLY Indication: Chest pain. Comparison: 04/02/2019 Findings: No focal airspace disease in the visualized lungs. No pleural effusion or pneumothorax. Normal cardiomediastinal silhouette. Impression: 1. No acute cardiopulmonary process by portable radiography. Dictated by: Dictated on workstation # [id number]
[2022-06-21] MEDS ORDERED: NS IV 500 ML 500 ML IV PRN (08:45)
[2022-06-21] MEDS ORDERED: EMPAGLIFLOZIN 10 MG TABLET (JARDIANCE) PO SCH (09:00)
[2022-06-21] MEDS ORDERED: meTOprolol TARTRATE 25 MG (LOPRESSOR) TABLET PO SCH ×2 (09:00→21:00)
[2022-06-21] MEDS: inSUlin ASPART (NovoLOG) 1 UNIT/0.01 ML (CHARGE PER UNIT) SC SCH ×4 (09:30→20:15)
[2022-06-21] MEDS: PANTOPRAZOLE 40 MG (PROTONIX) TAB PO SCH (09:31)
[2022-06-21] MEDS: MAGNESIUM 1 GM/100 ML IVPB 100 ML IV SCH ×2 (09:31→10:50)
[2022-06-21] MEDS: POTASSIUM CL 10MEQ/50ML IVPB 50 ML IV SCH ×2 (09:31→10:50)
[2022-06-21] MEDS: ASPIRIN E.C. 81 MG (ECOTRIN) TAB PO SCH (09:32)
[2022-06-21] MEDS: TICAGRELOR 90 MG TABLET (BRILINTA) PO SCH ×2 (09:32→20:15)
[2022-06-21] MEDS: LOSARTAN 50 MG (COZAAR) TAB PO SCH (09:32)
--- NOTE | 2022-06-21 15:21 | Cardiology Progress Note ---
Progress Note-Cardiology Events since last exam Date Seen by Provider: Jun 21, 2022 Time Seen by Provider: 15:18 Events since last exam He is on my service following an inferolateral STEMI that was treated with 1 drug-eluting stent to the distal right coronary artery. 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 His chest discomfort is now resolved. He denies dyspnea at rest, palpitations, or syncope. He has mild, chronic bilateral lower extremity edema. Certain portions of this document may have been dictated utilizing voice recognition technology. Inherent to this technology, typographical and grammatical errors may exist. As much as I am diligent to identify and correct these mistakes, some errors may remain in the document. Vitals Last set of Vitals Signs Vital Signs 06/21/22 06/21/22 16:00 17:00 Temp 36.4 Pulse 90 B/P (MAP) 111/70 (84) Pulse Ox 93 O2 Delivery Nasal Cannula O2 Flow Rate 2.00 Labs Labs Laboratory Tests 06/21/22 01:45 Exam Vital Signs Vital Signs Date Time Temp Pulse Resp B/P (MAP) Pulse Ox O2 Delivery O2 Flow Rate FiO2 06/21/22 17:00 90 111/70 (84) 93 Nasal Cannula 2.00 06/21/22 16:00 36.4 06/21/22 12:00 20 Physical Exam General: Alert. No acute distress. He is obese. Eye: No xanthelasma. HENT: Normocephalic. Neck: Jugular venous pressure does not appear elevated. Respiratory: Lungs are clear to auscultation but decreased at the bases bilaterally. Respirations are non-labored. Breath sounds are equal. Symmetrical chest wall expansion. Cardiovascular: Normal rate. Regular rhythm. Distant S1/S2. No murmur. No ga llop. Trace bilateral pretibial edema. Gastrointestinal: Soft. Normal bowel sounds. Skin: Warm. Dry. Neurologic: Alert and oriented to person, place, time. Cranial nerves 3-11 grossly intact. Psychiatric: Cooperative. Appropriate mood & affect. Labs Laboratory Tests Test 06/21/22 01:45 06/21/22 06:18 06/21/22 10:27 06/21/22 14:35 Range/Units White Blood Count 10.6 4.3-11.0 10^3/uL Red Blood Count 4.84 4.30-5.52 10^6/uL Hemoglobin 13.1 L 13.3-17.7 g/dL Hematocrit 42 40-54 % Mean Corpuscular Volume 87 80-99 fL Mean Corpuscular Hemoglobin 27 25-34 pg Mean Corpuscular Hemoglobin Concent 31 L 32-36 g/dL Red Cell Distribution Width 17.0 H 10.0-14.5 % Platelet Count 304 130-400 10^3/uL Mean Platelet Volume 9.5 9.0-12.2 fL Immature Granulocyte % (Auto) 0 % Neutrophils (%) (Auto) 72 42-75 % Lymphocytes (%) (Auto) 18 12-44 % Monocytes (%) (Auto) 8 0-12 % Eosinophils (%) (Auto) 2 0-10 % Basophils (%) (Auto) 0 0-10 % Neutrophils # (Auto) 7.6 1.8-7.8 10^3/uL Lymphocytes # (Auto) 1.9 1.0-4.0 10^3/uL Monocytes # (Auto) 0.8 0.0-1.0 10^3/uL Eosinophils # (Auto) 0.2 0.0-0.3 10^3/uL Basophils # (Auto) 0.0 0.0-0.1 10^3/uL Immature Granulocyte # (Auto) 0.0 0.0-0.1 10^3/uL Prothrombin Time 13.2 12.2-14.7 SEC INR Comment 1.0 0.8-1.4 Activated Partial Thromboplast Time 25 24-35 SEC D-Dimer 0.48 0.00-0.49 UG/ML Sodium Level 141 135-145 MMOL/L Potassium Level 3.5 L 3.6-5.0 MMOL/L Chloride Level 103 98-107 MMOL/L Carbon Dioxide Level 21 21-32 MMOL/L Anion Gap 17 H 5-14 MMOL/L Blood Urea Nitrogen 23 H 7-18 MG/DL Creatinine 1.05 0.60-1.30 MG/DL Estimat Glomerular Filtration Rate 72 BUN/Creatinine Ratio 22 Glucose Level 214 H 70-105 MG/DL Calcium Level 8.7 8.5-10.1 MG/DL Corrected Calcium 8.7 8.5-10.1 MG/DL Magnesium Level 1.7 1.6-2.4 MG/DL Total Bilirubin 0.3 0.1-1.0 MG/DL Aspartate Amino Transf (AST/SGOT) 17 5-34 U/L Alanine Aminotransferase (ALT/SGPT) 29 0-55 U/L Alkaline Phosphatase 68 40-136 U/L Total Creatine Kinase 106 30-200 U/L Creatine Kinase MB 1.4 <6.6 NG/ML Myoglobin 64.3 10.0-92.0 NG/ML Troponin I < 0.028 6.079 *H 18.972 *H <0.028 NG/ML B-Type Natriuretic Peptide 42.8 <100.0 PG/ML Total Protein 6.8 6.4-8.2 GM/DL Albumin 4.0 3.2-4.5 GM/DL Triglycerides Level 139 134 <150 MG/DL Cholesterol Level 130 127 < 200 MG/DL LDL Cholesterol Direct 77 76 1-129 MG/DL VLDL Cholesterol 28 27 5-40 MG/DL HDL Cholesterol 34 L 36 L 40-60 MG/DL Amylase Level 44 25-125 U/L Lipase 16 8-78 U/L Thyroid Stimulating Hormone (TSH) 5.20 H 1.96 0.35-4.94 UIU/ML Glucometer 178 H 70-110 MG/DL Test 06/21/22 15:27 Range/Units Glucometer 135 H 70-110 MG/DL Radiology ECHOCARDIOGRAM (06/21/2022): 1. This is a technically difficult study due to poor image quality secondary to patient's body habitus. 2. Left ventricle: The cavity size is normal. Wall thickness is normal. Systolic function is mildly reduced. The estimated ejection fraction is 45-50%. Mild diffuse hypokinesis. Features are consistent with a pseudonormal left vent ricular filling pattern, with concomitant abnormal relaxation and increased filling pressure (grade 2 diastolic dysfunction). 3. Pulmonary arteries: The estimated pulmonary artery systolic pressure is 31 mmHg assuming a right atrial pressure of 5 mmHg. Diagnosis/Problems Diagnosis/Problems (1) ST elevation myocardial infarction (STEMI) of inferolateral wall, initial episode of care Assessment & Plan: He suffered inferolateral ST elevation myocardial infarction due to acute thrombotic occlusion of the distal right coronary artery that was treated with 1 drug-eluting stent. He is on aspirin, ticagrelor, metoprolol, and intensive dose statin medication. His chest discomfort has resolved. He is not having any significant arrhythmias. He has mild left ventricular systolic dysfunction. I will start him on long-acting nitrates since he had chest discomfort waxing and waning throughout the night following the stent placement. (2) Ischemic cardiomyopathy Assessment & Plan: He has mild left ventricular systolic dysfunction as noted on his echocardiogram from 06/21. Some of this may be due to myocardial stunning from the myocardial infarction. He was taking losartan at home. I have restarted Metroprolol tartrate that he was taking at home. We may want to consider a follow-up echocardiogram in 2-3 months following discharge. (3) Coronary artery disease with unstable angina pectoris Assessment & Plan: As above. (4) Primary hypertension Assessment & Plan: Continue outpatient antihypertensive medications. There seems to be some discrepancy regarding his dose of metoprolol. I have increased his hospital dose to 50 mg twice daily due to elevated blood pressures. (5) Mixed hyperlipidemia Assessment & Plan: I have him on intensive dose rosuvastatin. (6) Type 2 diabetes mellitus with complication Assessment & Plan: Hold metformin due to the cardiac catheterization. Jardiance is temporarily on hold per pharmacy recommendation. I have ordered sliding scale insulin. (7) Obesity Assessment & Plan: He needs to work on weight loss. He has been counseled in this regard. JUANITA PUENTES JR, MD Jun 21, 2022 15:21
[2022-06-21] MEDS ORDERED: ISOSORBIDE MONONITRATE 30 MG (IMDUR) TAB PO NR (15:30)
[2022-06-21] MEDS: ACETAMINOPHEN 325 MG TABLET PO PRN (15:36)
[2022-06-21] MEDS: ENOXAPARIN 40 MG/0.4 ML (LOVENOX) SYR SC SCH (16:06)
[2022-06-21] MEDS: ROSUVASTATIN 20 MG (CRESTOR) TABLET PO SCH (20:15)
[2022-06-21] MEDS: meTOprolol TARTRATE 50 MG (LOPRESSOR) TAB PO SCH (20:15)
[2022-06-21] MEDS: FAMOTIDINE 20 MG (PEPCID) TABLET PO SCH (20:15)
[2022-06-21] MEDS: ZOLPIDEM 5 MG (AMBIEN) TAB PO PRN (22:15)
[2022-06-22] MEDS: ENOXAPARIN 40 MG/0.4 ML (LOVENOX) SYR SC SCH ×2 (04:32→17:18)
[2022-06-22] MEDS: KCL 20 MEQ TAB (K-DUR) PO SCH (05:35)
[2022-06-22] MEDS: MAGNESIUM 1 GM/100 ML IVPB 100 ML IV SCH (05:35)
[2022-06-22] MEDS: POTASSIUM CL 10MEQ/50ML IVPB 50 ML IV SCH (05:35)
[2022-06-22 05:56] LABS: BASOPHILS % (AUTO) 0 % (0-10); EOSINOPHILS % (AUTO) 0 % (0-10); HEMATOCRIT 38 % (40-54); HEMOGLOBIN 11.9 g/dL (13.3-17.7); LYMPHOCYTES % (AUTO) 8 % (12-44); MEAN CORPUSCULAR HEMOGLOBIN 28 pg (25-34); MEAN CORPUSCULAR HGB CONC 31 g/dL (32-36); MEAN CORPUSCULAR VOLUME 88 fL (80-99); MEAN PLATELET VOLUME 9.8 fL (9.0-12.2); MONOCYTES # (AUTO) 1.1 10^3/uL (0.0-1.0); MONOCYTES % (AUTO) 8 % (0-12); NEUTROPHILS # (AUTO) 11.1 10^3/uL (1.8-7.8); NEUTROPHILS % (AUTO) 84 % (42-75); PLATELET COUNT 273 10^3/uL (130-400); WHITE BLOOD COUNT 13.3 10^3/uL (4.3-11.0)
[2022-06-22 06:17] LABS: CALCIUM 8.5 MG/DL (8.5-10.1); CREATININE SERUM 0.92 MG/DL (0.60-1.30); POTASSIUM 4.4 MMOL/L (3.6-5.0)
[2022-06-22] MEDS: PANTOPRAZOLE 40 MG (PROTONIX) TAB PO SCH (06:28)
[2022-06-22] MEDS: LEVOTHYROXINE 75 MCG (LEVOTHROID) TABLET PO SCH (06:28)
[2022-06-22] MEDS: inSUlin ASPART (NovoLOG) 1 UNIT/0.01 ML (CHARGE PER UNIT) SC SCH ×4 (06:29→21:21)
[2022-06-22] MEDS: UMECLIDINIUM BROMIDE (INCRUSE ELLIPTA) 7'S IH SCH (07:43)
[2022-06-22] MEDS ORDERED: METF-397 PO (08:34)
[2022-06-22] MEDS ORDERED: LEVO88TA54 PO (08:34)
[2022-06-22] MEDS ORDERED: METO-333 PO (08:34)
[2022-06-22] MEDS ORDERED: TEST60GE TOP (08:34)
[2022-06-22] MEDS ORDERED: ASPI-1238 PO (08:34)
[2022-06-22] MEDS ORDERED: OXYB10TA29 PO (08:34)
[2022-06-22] MEDS ORDERED: TMSL.4C PO (08:34)
[2022-06-22] MEDS ORDERED: OMEP-254 PO (08:34)
[2022-06-22] MEDS ORDERED: SILD100T67 PO (08:34)
[2022-06-22] MEDS ORDERED: CHOL500050 PO (08:34)
[2022-06-22] MEDS ORDERED: MULT-1019 PO (08:34)
[2022-06-22] MEDS ORDERED: NAPR220T66 PO (08:34)
[2022-06-22] MEDS ORDERED: LOSA100T57 PO (08:34)
[2022-06-22] MEDS: CALCIUM CARBONATE 600 MG (CALCARB) TAB PO SCH (08:53)
[2022-06-22] MEDS: TICAGRELOR 90 MG TABLET (BRILINTA) PO SCH ×2 (08:53→21:13)
[2022-06-22] MEDS: ISOSORBIDE MONONITRATE 30 MG (IMDUR) TAB PO SCH (08:54)
[2022-06-22] MEDS: ASPIRIN E.C. 81 MG (ECOTRIN) TAB PO SCH (08:54)
[2022-06-22] MEDS: LOSARTAN 50 MG (COZAAR) TAB PO SCH (08:54)
[2022-06-22] MEDS: meTOprolol TARTRATE 50 MG (LOPRESSOR) TAB PO SCH ×2 (08:54→21:12)
[2022-06-22] MEDS: FAMOTIDINE 20 MG (PEPCID) TABLET PO SCH ×2 (08:54→21:13)
[2022-06-22] MEDS ORDERED: NON-FORMULARY MEDICATION 1 EA EA (Calcium Carbonate 500 MG) PO SCH (09:00)
[2022-06-22] MEDS ORDERED: NON-FORMULARY MEDICATION 1 EA EA (Tiotropium Bromide (Spiriva Respimat 2.5MCG/ACTUATION) 2 IH SCH (09:00)
[2022-06-22] MEDS ORDERED: NON-FORMULARY MEDICATION 1 EA EA (Levothyroxine Sodium (Levothyroxine) 75 MCG) PO SCH (09:00)
--- NOTE | 2022-06-22 10:05 | Cardiology Progress Note ---
Progress Note-Cardiology Events since last exam Date Seen by Provider: Jun 22, 2022 Time Seen by Provider: 10:04 Events since last exam He is on my service due to inferolateral ST elevation myocardial infarction. He feels somewhat short of breath this morning. Last evening he had a difficult time sleeping because he had a panic attack and became short of breath. He denies any further chest discomfort. He denies palpitations or syncope. He has chronic, mild ankle edema which is unchanged. Certain portions of this document may have been dictated utilizing voice recognition technology. Inherent to this technology, typographical and grammatical errors may exist. As much as I am diligent to identify and correct these mistakes, some errors may remain in the document. Vitals Last set of Vitals Signs Vital Signs 06/22/22 06/22/22 12:00 13:00 Temp 36.0 Pulse 98 Resp 18 B/P (MAP) 112/70 (84) Pulse Ox 96 O2 Delivery Nasal Cannula O2 Flow Rate 2.00 Labs Labs Laboratory Tests 06/22/22 05:35 Exam Vital Signs Vital Signs Date Time Temp Pulse Resp B/P (MAP) Pulse Ox O2 Delivery O2 Flow Rate FiO2 06/22/22 13:00 98 06/22/22 12:00 36.0 18 112/70 (84) 96 Nasal Cannula 2.00 Physical Exam General: Alert. No acute distress. He is obese. Eye: No xanthelasma. HENT: Normocephalic. Neck: Jugular venous pressure does not appear elevated. Respiratory: Lungs are clear to auscultation but decreased at the bases bila terally. Respirations are non-labored. Breath sounds are equal. Symmetrical chest wall expansion. Cardiovascular: Normal rate. Regular rhythm. No murmur. No gallop. 1+ bilateral pretibial edema. Gastrointestinal: Soft. Normal bowel sounds. Skin: Warm. Dry. Neurologic: Alert and oriented to person, place, time. Cranial nerves 3-11 grossly intact. Psychiatric: Cooperative. Appropriate mood & affect. Labs Laboratory Tests Test 06/21/22 15:27 06/21/22 18:00 06/21/22 19:29 06/21/22 22:10 Range/Units Glucometer 135 H 196 H 70-110 MG/DL Troponin I 26.310 *H 41.972 *H <0.028 NG/ML Test 06/22/22 05:35 06/22/22 06:21 06/22/22 10:59 Range/Units White Blood Count 13.3 H 4.3-11.0 10^3/uL Red Blood Count 4.33 4.30-5.52 10^6/uL Hemoglobin 11.9 L 13.3-17.7 g/dL Hematocrit 38 L 40-54 % Mean Corpuscular Volume 88 80-99 fL Mean Corpuscular Hemoglobin 28 25-34 pg Mean Corpuscular Hemoglobin Concent 31 L 32-36 g/dL Red Cell Distribution Width 17.3 H 10.0-14.5 % Platelet Count 273 130-400 10^3/uL Mean Platelet Volume 9.8 9.0-12.2 fL Immature Granulocyte % (Auto) 1 % Neutrophils (%) (Auto) 84 H 42-75 % Lymphocytes (%) (Auto) 8 L 12-44 % Monocytes (%) (Auto) 8 0-12 % Eosinophils (%) (Auto) 0 0-10 % Basophils (%) (Auto) 0 0-10 % Neutrophils # (Auto) 11.1 H 1.8-7.8 10^3/uL Lymphocytes # (Auto) 1.0 1.0-4.0 10^3/uL Monocytes # (Auto) 1.1 H 0.0-1.0 10^3/uL Eosinophils # (Auto) 0.0 0.0-0.3 10^3/uL Basophils # (Auto) 0.0 0.0-0.1 10^3/uL Immature Granulocyte # (Auto) 0.1 0.0-0.1 10^3/uL Sodium Level 136 135-145 MMOL/L Potassium Level 4.4 3.6-5.0 MMOL/L Chloride Level 108 H 98-107 MMOL/L Carbon Dioxide Level 16 L 21-32 MMOL/L Anion Gap 12 5-14 MMOL/L Blood Urea Nitrogen 21 H 7-18 MG/DL Creatinine 0.92 0.60-1.30 MG/DL Estimat Glomerular Filtration Rate 85 BUN/Creatinine Ratio 23 Glucose Level 155 H 70-105 MG/DL Calcium Level 8.5 8.5-10.1 MG/DL Troponin I 42.907 *H <0.028 NG/ML Glucometer 156 H 221 H 70-110 MG/DL Radiology ECHOCARDIOGRAM (06/22/2022): 1. This is a technically difficult study due to poor image quality secondary to patient's body habitus. 2. This is a limited 2D only study to assess ejection fraction. 3. Left ventricle: The cavity size is normal. There is mild concentric hypertrophy. Regional wall motion abnormalities cannot be excluded due to poor endocardial definition. Systolic function is mildly reduced. The estimated ejection fraction is 40-45%. The left ventricular diastolic function was not det ermined. 4. Pulmonary arteries: The pulmonary artery pressure was not determined on this study since no Doppler was obtained. 5. Compared to the previous study from 06/21/2022, there is no significant change in the ejection fraction. Diagnosis/Problems Diagnosis/Problems (1) ST elevation myocardial infarction (STEMI) of inferolateral wall, initial episode of care Assessment & Plan: He suffered inferolateral ST elevation myocardial infarction due to acute thrombotic occlusion of the distal right coronary artery that was treated with 1 drug-eluting stent. He is on aspirin, ticagrelor, metoprolol, and intensive dose statin medication. His chest discomfort has resolved. He is not having any significant arrhythmias. He has mild left ventricular systolic dysfunction. I will start him on long-acting nitrates since he had chest discomfort waxing and waning throughout the night following the stent placement. (2) Ischemic cardiomyopathy Assessment & Plan: He has mild left ventricular systolic dysfunction as noted on his echocardiogram from 06/21. Some of this may be due to myocardial stunning from the myocardial infarction. He was taking losartan at home. I have restarted Metroprolol tartrate that he was taking at home. We may want to consider a follow-up echocardiogram in 2-3 months following discharge. (3) Coronary artery disease with unstable angina pectoris Assessment & Plan: As above. (4) Primary hypertension Assessment & Plan: Continue outpatient antihypertensive medications. There seems to be some discrepancy regarding his dose of metoprolol. I have increased his hospital dose to 50 mg twice daily due to elevated blood pressures. (5) Mixed hyperlipidemia Assessment & Plan: I have him on intensive dose rosuvastatin. (6) Type 2 diabetes mellitus with complication Assessment & Plan: Hold metformin due to the cardiac catheterization. Jardiance is temporarily on hold per pharmacy recommendation. I have ordered sliding scale insulin. (7) Obesity Assessment & Plan: He needs to work on weight loss. He has been counseled in this regard. JUANITA PUENTES JR, MD Jun 22, 2022 10:05
[2022-06-22] MEDS ORDERED: FUROSEMIDE 40 MG/4 ML INJ (LASIX) IVP NR (10:30)
--- NOTE | 2022-06-22 12:39 | Diagnostic Imaging Report ---
Indication: Shortness of air. COMPARISON: 06/21/2022 FINDINGS: Frontal and lateral radiograph views the chest were obtained and show stable cardiac silhouette and pulmonary vasculature. Lungs remain clear. There is no focal consolidation, large effusion, nor pneumothorax. Osseous structures show no gross acute abnormalities. IMPRESSION: 1. No new acute cardiopulmonary process. Dictated by: Dictated on workstation # [id number]
[2022-06-22] MEDS: ZOLPIDEM 5 MG (AMBIEN) TAB PO PRN (21:12)
[2022-06-22] MEDS: ROSUVASTATIN 20 MG (CRESTOR) TABLET PO SCH (21:12)
[2022-06-23] MEDS: ACETAMINOPHEN 325 MG TABLET PO PRN (01:53)
[2022-06-23] MEDS: ENOXAPARIN 40 MG/0.4 ML (LOVENOX) SYR SC SCH (04:20)
[2022-06-23 05:55] LABS: BASOPHILS % (AUTO) 0 % (0-10); EOSINOPHILS % (AUTO) 0 % (0-10); HEMATOCRIT 38 % (40-54); HEMOGLOBIN 11.9 g/dL (13.3-17.7); LYMPHOCYTES # (AUTO) 1.5 10^3/uL (1.0-4.0); LYMPHOCYTES % (AUTO) 9 % (12-44); MEAN CORPUSCULAR HEMOGLOBIN 27 pg (25-34); MEAN CORPUSCULAR HGB CONC 32 g/dL (32-36); MEAN CORPUSCULAR VOLUME 86 fL (80-99); MEAN PLATELET VOLUME 10.1 fL (9.0-12.2); MONOCYTES # (AUTO) 1.3 10^3/uL (0.0-1.0); MONOCYTES % (AUTO) 8 % (0-12); NEUTROPHILS # (AUTO) 13.8 10^3/uL (1.8-7.8); NEUTROPHILS % (AUTO) 82 % (42-75); PLATELET COUNT 284 10^3/uL (130-400); WHITE BLOOD COUNT 16.8 10^3/uL (4.3-11.0)
[2022-06-23 06:08] LABS: POTASSIUM 3.9 MMOL/L (3.6-5.0)
[2022-06-23 06:09] LABS: CALCIUM 8.5 MG/DL (8.5-10.1)
[2022-06-23 06:14] LABS: CREATININE SERUM 0.97 MG/DL (0.60-1.30)
[2022-06-23] MEDS: PANTOPRAZOLE 40 MG (PROTONIX) TAB PO SCH (06:26)
[2022-06-23] MEDS: LEVOTHYROXINE 75 MCG (LEVOTHROID) TABLET PO SCH (06:26)
[2022-06-23] MEDS: POTASSIUM CL 10MEQ/50ML IVPB 50 ML IV SCH (06:31)
[2022-06-23] MEDS: MAGNESIUM 1 GM/100 ML IVPB 100 ML IV SCH (06:31)
[2022-06-23] MEDS: KCL 20 MEQ TAB (K-DUR) PO SCH (06:32)
[2022-06-23] MEDS: inSUlin ASPART (NovoLOG) 1 UNIT/0.01 ML (CHARGE PER UNIT) SC SCH ×2 (06:32→11:00)
[2022-06-23 07:36] LABS: BAND NEUTROPHILS 5 %; BASOPHILS % (MANUAL) 0 %; EOSINOPHILS % (MANUAL) 0 %; LYMPHOCYTES % (MANUAL) 12 %; MONOCYTES % (MANUAL) 7 %; NEUTROPHILS % (MANUAL) 76 %
[2022-06-23 07:37] LABS: ANISOCYTOSIS SLIGHT
[2022-06-23] MEDS: UMECLIDINIUM BROMIDE (INCRUSE ELLIPTA) 7'S IH SCH (08:17)
[2022-06-23] MEDS: TICAGRELOR 90 MG TABLET (BRILINTA) PO SCH (08:52)
[2022-06-23] MEDS: CALCIUM CARBONATE 600 MG (CALCARB) TAB PO SCH (08:52)
[2022-06-23] MEDS: meTOprolol TARTRATE 50 MG (LOPRESSOR) TAB PO SCH (08:52)
[2022-06-23] MEDS: ASPIRIN E.C. 81 MG (ECOTRIN) TAB PO SCH (08:52)
[2022-06-23] MEDS: LOSARTAN 50 MG (COZAAR) TAB PO SCH (08:52)
[2022-06-23] MEDS: FAMOTIDINE 20 MG (PEPCID) TABLET PO SCH (08:52)
[2022-06-23] MEDS: ISOSORBIDE MONONITRATE 30 MG (IMDUR) TAB PO SCH (08:52)
--- NOTE | 2022-06-23 11:53 | Discharge Summary ---
Diagnosis/Chief Complaint Date of Admission Jun 21, 2022 at 03:23 Date of Discharge 06/23/22 Discharge Date: Jun 23, 2022 Discharge Time: 14:00 Admission Diagnosis Admission Diagnosis Inferolateral STEMI. Discharge Diagnosis 1. Inferolateral STEMI treated with 1 drug-eluting stent to the distal right coronary artery. 2. Ischemic cardiomyopathy, mild. No heart failure. 3. Primary hypertension. 4. Mixed hyperlipidemia. 5. Type 2 diabetes mellitus with cardiovascular complication. 6. Chronic obstructive pulmonary disease. 7. Obesity. Reason Hospital Visit Inferolateral STEMI. Discharge Summary Hospital Course Was the Problem List Reviewed?: Yes Hospital Course The patient developed chest pain at home and called 911. He had an electrocardiogram performed in the field that showed an inferolateral STEMI and he was taken to our hospital for emergency cardiac catheterization. He was found to have a total occlusion of the distal right coronary artery that was treated with 1 drug-eluting stent. He did have some postprocedure chest discomfort that resolved the day following the procedure. He was placed on usual guideline directed medical therapy. He did also undergo an echocardiogram that showed mild left ventricular systolic dysfunction with an estimated ejection fraction of 45%. There were no signs of heart failure and no arrhythmias. On the day of discharge, he was ambulating with normal oxygen saturations despite complaining of some slight shortness of breath. Over 30 minutes was spent in direct [id number] contact with the patient and preparing this discharge summary. Certain portions of this document may have been dictated utilizing voice recognition technology. Inherent to this technology, typographical and grammatical errors may exist. As much as I am diligent to identify and correct these mistakes, some errors may remain in the document. Labs Laboratory Tests 06/21/22 01:45: Hemoglobin 13.1L, Mean Corpuscular Hemoglobin Concent 31L, Red Cell Distribution Width 17.0H, Potassium Level 3.5L, Anion Gap 17H, Blood Urea Nitrogen 23H, Glucose Level 214H, Mean Blood Glucose 163H, Hemoglobin A1c 7.3H, HDL Cholesterol 34L, Thyroid Stimulating Hormone (TSH) 5.20H 06/21/22 06:18: HDL Cholesterol 36L, Troponin I 6.079*H 06/21/22 10:27: Glucometer 178H 06/21/22 14:35: Troponin I 18.972*H 06/21/22 15:27: Glucometer 135H 06/21/22 18:00: Troponin I 26.310*H 06/21/22 19:29: Glucometer 196H 06/21/22 22:10: Troponin I 41.972*H 06/22/22 05:35: White Blood Count 13.3H, Hemoglobin 11.9L, Hematocrit 38L, Mean Corpuscular Hemoglobin Concent 31L, Red Cell Distribution Width 17.3H, Neutrophils (%) (Auto) 84H, Lymphocytes (%) (Auto) 8L, Neutrophils # (Auto) 11.1H, Monocytes # (Auto) 1.1H, Chloride Level 108H, Carbon Dioxide Level 16L, Blood Urea Nitrogen 21H, Glucose Level 155H, Troponin I 42.907*H 06/22/22 06:21: Glucometer 156H 06/22/22 10:59: Glucometer 221H 06/22/22 16:39: Glucometer 153H 06/22/22 20:58: Glucometer 149H 06/23/22 05:37: White Blood Count 16.8H, Hemoglobin 11.9L, Hematocrit 38L, Red Cell Distribution Width 17.1H, Neutrophils (%) (Auto) 82H, Lymphocytes (%) (Auto) 9L, Neutrophils # (Auto) 13.8H, Monocytes # (Auto) 1.3H, Sodium Level 133L, Blood Urea Nitrogen 26H, Glucose Level 142H 06/23/22 10:20: Glucometer 185H Procedures Cardiac catheterization and drug-eluting stent placement to distal right coronary artery. Echocardiogram. Discharge Physical Examination Allergies: Coded Allergies: fosinopril (Unverified Allergy, Unknown, 08/30/21) lisinopril (Unverified Allergy, Unknown, 08/30/21) Vitals & I&Os Vital Signs Date Time Temp Pulse Resp B/P (MAP) Pulse Ox O2 Delivery O2 Flow Rate FiO2 06/23/22 08:35 99 Room Air 06/23/22 08:17 2.00 06/23/22 07:57 36.3 82 18 128/88 (101) General Appearance: Alert, Oriented X3, Cooperative, No Acute Distress HEENT: Atraumatic, EOMI, Mucous Memb Moist/[place] Respiratory: Clear to Auscultation, Other (Slightly decreased breath sounds at the bases bilaterally.) Cardiovascular: Regular Rate, Normal S1, Normal S2, No Murmurs Abdominal: Normal Bowel Sounds, Soft Extremities: No Clubbing, No Cyanosis, Normal Pulses, Other (Trace bilateral pretibial edema.) Skin: No Rashes, No Breakdown, No Significant Lesion Neuro: Normal Speech, Strength at 5/5 X4 Ext, Cranial Nerves 3-12 NL Psych/Mental Status: Mental Status NL, Mood NL Discharge Home Medications Reviewed and agree with Discharge Medication list on patient's Discharge Instruction sheet Instructions to Patient/Family Please see electronic discharge instructions given to patient. Clinical Quality Measures End of Life/Advance Care Plan: Advance Care discuss with: patient Admission Status Admission Status: Inpatient Order (span 2 midnights) Reason for Inpatient Admission: STEMI AMI/AHF: Ejection Fraction: Above/Equal to 40 D/C Inst. for HF given: No ASA po Prior to arrival: Yes Initial ECG Impression: Acute MA DVT/VTE Risk/Contraindication: VTE Addressed: Yes VTE Present on Admission: No JUANITA PUENTES JR, MD Jun 23, 2022 11:53
[2022-06-23] MEDS ORDERED: METO50TA15 PO (11:58)
[2022-06-23] MEDS ORDERED: TICA90TA PO (11:58)
[2022-06-23] MEDS ORDERED: ISOS30TA82 PO (11:58)
--- NOTE | 2022-06-23 13:54 | Progress Note ---
Standard Progress Note Progress Notes/Assess & Plan Date Seen by a Provider: Jun 23, 2022 Time Seen by a Provider: 13:52 Progress/Assessment & Plan I saw the patient earlier today and prepared his discharge. He was in his room getting dressed and when he was trying to put a sock on, he fell on the floor and hit his head. He did not lose consciousness. He has a small bruise on the left temporal area without any laceration. He denies headache or any neurologic complaints. I will send him for a head CT and if this does not show any evidence of intracranial hemorrhage, he can be discharged this afternoon as previously planned. JUANITA PUENTES JR, MD Jun 23, 2022 13:54
--- NOTE | 2022-06-23 15:09 | Diagnostic Imaging Report ---
PROCEDURE: CT head without contrast. TECHNIQUE: Multiple contiguous axial images were obtained through the brain without the use of intravenous contrast. Auto Exposure Controls were utilized during the CT exam to meet ALARA standards for radiation dose reduction. INDICATION: Fall. COMPARISON: No prior studies are available for comparison. FINDINGS: Ventricles and sulci are consistent with the patient's age. There is moderate periventricular low attenuation, consistent with chronic microvascular ischemia. There is no sulcal effacement or midline shift. No acute intra-axial or extra-axial hemorrhage is detected. Cisterns are patent. Visualized paranasal sinuses are clear. IMPRESSION: Changes of chronic microvascular ischemia. No acute intracranial process is detected. Dictated by: Dictated on workstation # [id number]
[2022-06-23 15:33] VITALS: BP 98/68
== END 2022-06-23 15:35 | disposition home or self-care (01) | DRG 247 ==
LOC: EDUNIT# 01:24 → ER 01:34 → CATH 02:02 → ICU 03:23 → CSD 18:06
PROVIDERS: ADMIT Internal Medicine Cardiovascular Disease; ATTEND Internal Medicine Cardiovascular Disease
PROC: 027034Z Dilation of Coronary Artery, One Artery with Drug-eluting Intraluminal Device, Percutaneous Approach (ICD-10-PCS; principal; 2022-06-21)
PROC: 4A023N7 Measurement of Cardiac Sampling and Pressure, Left Heart, Percutaneous Approach (ICD-10-PCS; 2022-06-21)
PROC: B2111ZZ Fluoroscopy of Multiple Coronary Arteries using Low Osmolar Contrast (ICD-10-PCS; 2022-06-21)
DX: I21.11 ST elevation (STEMI) myocardial infarction involving right coronary artery (principal); I25.110 Atherosclerotic heart disease of native coronary artery with unstable angina pectoris; I25.5 Ischemic cardiomyopathy; I10 Essential (primary) hypertension; E11.9 Type 2 diabetes mellitus without complications; J44.9 Chronic obstructive pulmonary disease, unspecified; F17.210 Nicotine dependence, cigarettes, uncomplicated; E78.2 Mixed hyperlipidemia; N40.0 Benign prostatic hyperplasia without lower urinary tract symptoms; K21.9 Gastro-esophageal reflux disease without esophagitis; M19.91 Primary osteoarthritis, unspecified site; E03.9 Hypothyroidism, unspecified; E66.9 Obesity, unspecified; S00.83XA Contusion of other part of head, initial encounter; Z68.36 Body mass index [BMI] 36.0-36.9, adult; Z79.84 Long term (current) use of oral hypoglycemic drugs; Z95.5 Presence of coronary angioplasty implant and graft; W18.30XA Fall on same level, unspecified, initial encounter; Y92.230 Patient room in hospital as the place of occurrence of the external cause
CPT/HCPCS: 36415; 70450; 71045; 71046; 80048; 80053; 80061; 82150; 82550; 82553; 82947; 83036; 83690; 83735; 83874; 83880; 84443; 84484; 85007; 85025; 85027; 85379; 85610; 85730; 87081; 93005; 93041; 93306; 93308; 93458; 94640

== ENCOUNTER → 2022-07-07 | Outpatient (CLI) | payer MEDICARE, OTHER ==
[~2022-07-07] MED LIST changes: +ASPI-1238 PO; +CHOL500050 PO; +ISOS30TA82 PO; +LEVO88TA54 PO; +LOSA100T57 PO; +METF-397 PO; +METO-333 PO; +MULT-1019 PO; +NAPR220T66 PO; +OMEP-254 PO; +OXYB10TA29 PO; +SILD100T67 PO; +TEST60GE TOP; +TICA90TA PO; +TMSL.4C PO
--- NOTE | 2022-07-07 18:52 | Diagnostic Imaging Report ---
INDICATION: Shortness of air. COMPARISON: 06/22/2022 FINDINGS: Right thoracic metallic opacities and shrapnel fragments unchanged. Some right-sided pleural thickening unchanged. Upper limits heart size and some mild vascular congestion unchanged. No pneumothorax. IMPRESSION: Stable chronic findings. Dictated by: Dictated on workstation # [id number]
== END ==
LOC: RAD FS 12:12
PROVIDERS: ATTEND Nurse Practitioner Family
DX: R06.02 Shortness of breath (principal)
CPT/HCPCS: 71046

== ENCOUNTER 2022-09-05 11:12 | Outpatient (RCR) | payer MEDICARE, OTHER | END 2022-09-06 | disposition home or self-care (01) | LOC: CR 11:12 | PROVIDERS: ATTEND Internal Medicine Interventional Cardiology | DX: Z29.8 Encounter for other specified prophylactic measures (principal); I21.9 Acute myocardial infarction, unspecified; Z95.5 Presence of coronary angioplasty implant and graft | CPT/HCPCS: 93798 ==

== ENCOUNTER → 2022-10-07 | Outpatient (RCR) | payer MEDICARE, OTHER | END | disposition home or self-care (01) | LOC: CR 09-09 08:13 | PROVIDERS: ATTEND Internal Medicine Interventional Cardiology | DX: I21.9 Acute myocardial infarction, unspecified (principal); Z95.5 Presence of coronary angioplasty implant and graft | CPT/HCPCS: 93798 ==

== ENCOUNTER 2022-10-12 14:27 | Outpatient (RCR) | payer MEDICARE, OTHER | END 2022-11-06 | disposition home or self-care (01) | LOC: CR 14:27 | PROVIDERS: ATTEND Internal Medicine Interventional Cardiology | DX: Z29.8 Encounter for other specified prophylactic measures (principal); I21.9 Acute myocardial infarction, unspecified; Z95.5 Presence of coronary angioplasty implant and graft | CPT/HCPCS: 93798 ==

== ENCOUNTER 2023-03-02 09:24 | Emergency (ER) | payer MEDICARE, OTHER ==
[~2023-03-02] VITALS: Ht 165 cm; Wt 98.3 kg
[~2023-03-02 09:24] MED LIST changes: -LOSA100T57 PO; +LOSA100T58 PO
[2023-03-02 09:57] LABS: CLARITY,URINE SL CLOUDY; COLOR,URINE YELLOW
[2023-03-02 09:58] LABS: BACTERIA,URINE TRACE /HPF; BILIRUBIN,URINE NEGATIVE (NEGATIVE); GLUCOSE, URINE (UA) 3+ (NEGATIVE); KETONES,URINE NEGATIVE (NEGATIVE); LEUKOCYTE ESTERASE ,URINE NEGATIVE (NEGATIVE); NITRITE,URINE NEGATIVE (NEGATIVE); PH,URINE 5.5 (5-9); PROTEIN,URINE 1+ (NEGATIVE); RBC,URINE >100 /HPF
--- NOTE | 2023-03-02 09:58 | ED GU-Male ---
General Chief Complaint: - Reproductive Stated Complaint: NOT URINATING Nursing Triage Note: Pt presents to ER with complaints of difficulty urinating s/p "uro life" (bladder surg) being completed on Monday by Dr. Quezada at [facility]. Source: patient History of Present Illness Date Seen by Provider: Mar 02, 2023 Time Seen by Provider: 09:26 Initial Comments 78-year-old male presenting with complaints of urinary retention and difficulty urinating since having a UroLift procedure with Dr. Quezada on Monday. He had called the clinic this morning and they advised him to either come to be seen in [place] or he could come to the local emergency department. He opted for coming here as it was closer. He denies any nausea or vomiting. He is able to dribble a very small amount of urine if he applies pressure to his bladder. He states he is doing several 16 ounce bottles of water with out any urine since 10 PM. He has a lot of pressure in the lower pelvis and abdomen. Timing/Duration: yesterday Severity/Quality: moderate, full Location: suprapubic Activities at Onset: none Prior Genitourinary Problems: recent trauma (UroLift surgery on Monday) Modifying Factors: Improves With Other (As he applies a lot of pressure and bends over putting extra pressure on his bladder he is able to dribble a very small amount of urine) Associated Symptoms: abdominal pain; No diaphoresis, No dysuria, No fever/chills, No loss of bladder control, No lower back pain, No lumps, No mass, No nausea/vomiting, No nocturia, No polyuria, No swelling, No syncope, No urinary frequency Allergies and Home Medications Allergies Coded Allergies: fosinopril (Unverified Allergy, Unknown, 08/30/21) lisinopril (Unverified Allergy, Unknown, 08/30/21) Patient Home Medication List Home Medication List Reviewed: Yes Aspirin (Aspirin EC) 81 Mg Tablet., 81 MG PO DAILY, (Reported) Entered as Reported by: DENISSE MAN on 06/22/22833 Cholecalciferol (Vitamin D3) (Vitamin D3) 125 Mcg (5000 Unit) Capsule, 125 MCG PO DAILY, (Reported) Entered as Reported by: DENISSE MAN on 06/22/22833 Empagliflozin (Jardiance) 10 Mg Tablet, 10 MG PO DAILY, (Reported) Entered as Reported by: HEBERT QUACH on 08/18/20 1237 Isosorbide Mononitrate (Isosorbide Mononitrate ER) 30 Mg Tab.er.24h, 30 MG PO DAILY Prescribed by: JUANITA PUENTES JR, MD on 06/23/22 1158 Levothyroxine Sodium (Levothyroxine Sodium) 88 Mcg Tablet, 88 MCG PO DAILY, (Reported) Entered as Reported by: DENISSE MAN on 06/22/22 0834 Losartan Potassium (Losartan Potassium) 100 Mg Tablet, 100 MG PO HS, (Reported) Entered as Reported by: DENISSE MAN on 06/22/22 0834 Metformin HCl (Metformin HCl) 500 Mg Tablet, 1,000 MG PO BID, (Reported) Entered as Reported by: DENISSE MAN on 06/22/22 0834 Metoprolol Tartrate (Metoprolol Tartrate) 25 Mg Tablet, 25 MG PO BID, (Reported) Entered as Reported by: DENISSE MAN on 06/22/22 0834 Metoprolol Tartrate (Metoprolol Tartrate) 50 Mg Tablet, 50 MG PO BID Prescribed by: JUANITA PUENTES JR, MD on 06/23/22 1158 Multivits,Ca,Min/Iron/FA/Lycop (Centrum Ultra Men's Tablet) 8 Mg Iron-200 Mcg- 600 Mcg Tablet, 1 EACH PO DAILY, (Reported) Entered as Reported by: DENISSE MAN on 06/22/22 0834 Naproxen Sodium (Aleve) 220 Mg Tablet, 440 MG PO HS, (Reported) Entered as Reported by: DENISSE MAN on 06/22/22 0834 Omeprazole Magnesium (Omeprazole Magnesium) 20 Mg Capsule.dr, 20 MG PO DAILY, (Reported) Entered as Reported by: DENISSE MAN on 06/22/22 0834 Oxybutynin Chloride (Oxybutynin Chloride ER) 10 Mg Tab.er.24, 10 MG PO HS, (Reported) Entered as Reported by: DENISSE MAN on 06/22/22 0834 Pravastatin Sodium (Pravastatin Sodium) 80 Mg Tablet, 80 MG PO HS, (Reported) Entered as Reported by: HEBERT QUACH on 08/18/20 1237 Tamsulosin HCl (Flomax) 0.4 Mg Cap, 0.4 MG PO 1900, (Reported) Entered as Reported by: DENISSE MAN on 06/22/22 0834 Testosterone (Fortesta) 10 Mg (2%) Gel..produce department supervisor, 4 PUMP TOP DAILY, (Reported) Entered as Reported by: DENISSE MAN on 06/22/22 0834 Ticagrelor (Brilinta) 90 Mg Tablet, 90 MG PO BID Prescribed by: JUANITA PUENTES JR, MD on 06/23/22 1158 Tiotropium [place] (Spiriva Respimat 2.5MCG/ACTUATION) 4 Gm Mist.inhal, 2 PUFF IH DAILY, (Reported) Entered as Reported by: HEBERT QUACH on 08/18/20 1237 Review of Systems Review of Systems Constitutional: No chills, No fever EENTM: no symptoms reported Respiratory: no symptoms reported Cardiovascular: no symptoms reported Gastrointestinal: see HPI Genitourinary: see HPI Musculoskeletal: no symptoms reported Skin: no symptoms reported Psychiatric/Neurological: No Symptoms Reported Past Sfcfzya-[id number]-Kusgtg Hx Immunizations Up To Date PED Vaccines UTD: No First/Initial COVID19 Vaccinat: YES Second COVID19 Vaccination Jeffrey: YES Third COVID19 Vaccination Date: YES Seasonal Allergies Seasonal Allergies: Yes Past Medical History Surgery/Hospitalization HX: BPH, diabetes, coronary artery disease, cardiac stent, tonsillectomy and adenoidectomy, COPD, hypertension, high cholesterol Surgeries: Yes (stents placed in 2004,2009, and 5 placed October 2019, lung sx 1959, ganglion) Adenoidectomy, Coronary Stent, Lobectomy, Orthopedic, Tonsillectomy Respiratory: Yes (hx of lung sx in 1960's"lung repair") COPD Currently Using CPAP: No Currently Using BIPAP: No Cardiac: Yes (CAD WITH STENTS X 5 OR MORE) Coronary Artery Disease, High Cholesterol, Hypertension Neurological: No Genitourinary: Yes ("WEAK BLADDER"; CIRCUMCISION 08/25/2020) Benign Prostatic Hyperpl, Prostate Problems Gastrointestinal: Yes (GASTRITIS) Gastroesophageal Reflux, Diverticulosis, Hemorrhoids, Polyps, Hiatal Hernia Musculoskeletal: Yes Arthritis Endocrine: Yes Hypothyroidsim, Diabetes, Non-Insulin dep HEENT: Yes (glasses) Cancer: No Psychosocial: No Integumentary: Yes Psoriasis Blood Disorders: No Family Medical History CIRCUMCISION 08/25/[address] LUCAS EGD + COLONOSCOPY 09/06/[address] NEELY Pre-Operative Diagnosis Reflux, Hx of polyps, bowel changes Post-Operative Diagnosis Gastritis Hiatal hernia polyp diverticula int hemorrhoids Physical Exam Vital Signs Vital Signs - First Documented 03/02/23 09:34 Temp 37.0 Pulse 101 Resp 20 B/P (MAP) 132/77 (95) Pulse Ox 93 O2 Delivery Room Air Capillary Refill : Less Than 3 Seconds Height, Weight, BMI Height: '" Weight: lbs. oz. kg; 36.00 BMI Method: General Appearance: WD/WN, no apparent distress Cardiovascular: normal peripheral pulses, regular rate, rhythm Respiratory: chest non-tender, lungs clear, normal breath sounds Gastrointestinal: normal bowel sounds, soft, no pulsatile mass; No distended, No guarding, No rebound; tenderness (Increased pressure with palpation over the suprapubic area) Rectal: deferred Back: no CVA tenderness Extremities: normal range of motion, non-tender, normal capillary refill Neurologic/Psychiatric: alert, oriented x 3 Progress/Results/Core Measures Suspected Sepsis SIRS Temperature: Pulse: 101 Respiratory Rate: 20 Blood Pressure 132 /77 Mean: 95 Results/Orders Lab Results Laboratory Tests Test 03/02/23 09:44 Range/Units Urine Color YELLOW Urine Clarity SL CLOUDY Urine pH 5.5 5-9 Urine Specific [place] 1.020 1.016-1.022 Urine Protein 1+ H NEGATIVE Urine Glucose (UA) 3+ H NEGATIVE Urine Ketones NEGATIVE NEGATIVE Urine Nitrite NEGATIVE NEGATIVE Urine Bilirubin NEGATIVE NEGATIVE Urine Urobilinogen 0.2 < = 1.0 MG/DL Urine Leukocyte Esterase NEGATIVE NEGATIVE Urine RBC (Auto) 3+ H NEGATIVE Urine RBC >100 H /HPF Urine WBC 5-10 H /HPF Urine Crystals NONE /LPF Urine Bacteria TRACE /HPF Urine Casts NONE /LPF Urine Mucus NEGATIVE /LPF Urine Culture Indicated YES My Orders Orders - KATHRYN TOBIN MD Bladder Scan (03/02/23 09:27) Marvin Cath (03/02/23 09:27) Ua Culture If Indicated (03/02/23 09:27) Urine Culture (03/02/23 09:44) Vital Signs/I&O 03/02/23 03/02/23 09:34 10:06 Temp 37.0 Pulse 101 87 Resp 20 20 B/P (MAP) 132/77 (95) 106/63 (77) Pulse Ox 93 92 O2 Delivery Room Air Room Air Capillary Refill : Less Than 3 Seconds Blood Pressure Mean: 95 Progress Note : Progress Note Potential diagnosis of UTI, urinary retention, dehydration. Obtain a bladder scan on arrival to the room and patient had over 800 mL of urine showing on the bladder scan. Ordered a Marvin catheter to drain his bladder and send a urinalysis for testing. 1002 with placement of the Marvin catheter he had 975 mL of urine that came out. This appeared clear and light yellow. The urinalysis did show large number of red blood cells but only 5-10 white blood cells and no nitrites, leukocyte Estrace. He had 3+ glucose and had trace bacteria. A culture was reflexed. I called and spoke to Dr. Quezada's family services assistant, Caterina. She made an appointment for the patient at 11 AM on Monday to be seen in [place] to see about having the catheter removed. She advised that typically Dr. Quezada would not start antibiotics just for having the catheter placed. If his culture results show that he requires an antibiotic then he could get started on that over the weekend. Encouraged the patient to call Dr. Quezada's office if having other concerns. I reviewed these recommendations with the patient and he was counseled and educated about the catheter care at home. Departure Impression Primary Impression: Acute urinary retention Disposition: HOME, SELF-CARE Condition: Stable Departure-Patient Inst. Decision time for Depature: 09:57 Referrals: REMI BENNETT APRN (PCP) Primary Care Physician [facility] (Family) Primary Care Physician Patient Instructions: Urinary Retention (DC), How to Care for Your Marvin Catheter, Male Add. Discharge Instructions: Use the marvin catheter to keep the bladder draining. Follow up with Dr. Quezada MondayMarch 06 at 11 am in [place], [place] to see about getting the catheter removed. Call his clinic if having any other concerns or questions before you are seen Monday. All discharge instructions reviewed with patient and/or family. Voiced understanding. KATHRYN TOBIN MD Mar 02, 2023 09:58
[2023-03-02 10:28] VITALS: BP 107/58
== END 2023-03-02 10:29 | disposition home or self-care (01) ==
LOC: EDUNIT# 09:24 → ER FS 09:25
DX: R33.9 Retention of urine, unspecified (principal); Z87.438 Personal history of other diseases of male genital organs
CPT/HCPCS: 51702; 81000; 87088